=== PATIENT | female | born 1970 ===

== ENCOUNTER 2024-01-17 11:54 | Outpatient (REF) | payer SELFPAY ==
[2024-01-17 13:35] LABS: Alanine Aminotransferase 20 U/L (0-31); Albumin Level 4.3 g/dL (3.5-5.0); Alkaline Phosphatase 94 U/L (39-117); Anion Gap 10 (12-20); Aspartate Amino Transferase 16 U/L (5-31); Bilirubin Total 0.4 mg/dL (0.0-1.0); Blood Urea Nitrogen 17 mg/dL (9-16); Calcium 9.7 mg/dL (8.4-10.2); Carbon Dioxide 28 mmol/L (22-29); Chloride 107 mmol/L (96-108); Cholesterol 197 mg/dL (<200); Estimated Glomerular Filt Rate > 60; Glucose Random 96 mg/dL (60-115); HDL Cholesterol 54 mg/dL (>40); LDL Cholesterol Calculated 119 mg/dL (<100); Sodium 141 mmol/L (135-145); Total Protein 7.2 g/dL (6.5-8.0); Triglycerides 124 mg/dL (<150)
[2024-01-17 15:22] LABS: CT PCR NOT DETECTED (Not Detect.); NG PCR NOT DETECTED (Not Detect.)
[2024-01-18 19:43] LABS: RPR Rapid Plasma Reagin NON-REACTIVE (NON-REACTIVE)
[2024-01-20 16:13] LABS: HIV RNA PCR Qn Copies Not Detected Copies/mL; HIV RNA PCR Qn Log Copies Not Detected Log cps/mL
== END 2024-01-17 11:55 | disposition home or self-care (01) ==
LOC: HO.HHCL 11:54
PROVIDERS: Visit Provider Nurse Practitioner Family
DX: Z00.00 Encounter for general adult medical examination without abnormal findings (principal); I10 Essential (primary) hypertension
CPT/HCPCS: 36415; 80053; 80061; 86592; 87491; 87536; 87591; 87900

== ENCOUNTER 2024-06-20 14:05 | Outpatient (REF) | payer BC, SELFPAY ==
--- OUTSIDE RECORDS SUMMARY | 2024-06-20 15:04 | XMS_ITS | Encounter Summary ---
Author Organization [employer] Address [address] [facility] 7t [place] [address] Care Team Providers Care Financial Assistance Specialist Name Role Phone Valentine Lagunas ESSIE Primary Care Provider [phone] Reason for Visit * Reason Onset Date Comments Chart Prep 06/07/2024 Encounter Details Date Type Department Care Team ([facility] st Contact Info) Description 06/07/2024 Telephone [facility] [address] [place], [place] [phone] Rosi Cannon MA Chart Prep Social History Tobacco Use Types Packs/Day Years Used Date Smoking Tobacco: Never Smokeless Tobacco: Never Alcohol Use Standard Drinks/Week Comments Yes 0 (1 standard drink = 0.6 oz pur e alcohol) socially Depression Answer Date Recorded Patient Health Questionnaire-9 Score 15 01/17/2024 Patient Health Questionnaire-9 Score 15 01/17/2024 Last PHQ-9: Questionnaire Data Not on file 0 01/17/2024 Housing Stability Answer Date Recorded What is your housing situation today? I have willem nuñez 12/31/[address] you li ve. Do you have problems with any of the following? None of the above 12/31/2023 Food Insecurity Answer Date Recorded Within the past 12 months, y ou worried that your food would run out before you got money to buy more: Never True 12/31/2023 Within the past 12 months,th e food you bought just didn't last and you didn't have enough money to get more: Never True 01/2024 Transportation Answer Date Recorded In the past 12 months, has l ack of transportation kept you from medical appts, meetings, work or from getting things needed for daily living? No 12/31/2023 Utilities Answer Date Recorded In the past 12 months, has t he [employer], gas, oil or water company threatened to shut off services in your home? No 12/31/2023 Depression Answer Date Recorded Patient Health Questionnaire-2 Score 2 01/17/2024 Internet Access Answer Date Recorded Internet Access Q1 Yes 01/21/2024 Internet Access Q2 Not on file 01/21/2024 Comments Unknown Sex and Gender Information Value Date Recorded Sex Assigned at Female 03/23/2022 10:14 AM EDT Legal Sex Female 10:14 AM EDT Gender Identity Female 03/23/2022 10:14 AM EDT Sexual Orientation Choose not to disclose 2021 10:14 AM EDT documented as of this encounter Miscellaneous Notes * Telephone Encounter - Rosi Cannon MA - 06/07/2024 4:01 PM EST Chart Prep Labs: not done Images: not applicable Vaccines due: Covid Due, Hep B Due, Flu Due, and Shingles in pharmacy Due Referrals: Orthopedics pending appt Screenings: HIV screening Hep C, Cervical cancer Overdue care gaps: None documented in this encounter Plan of Treatment Upcoming Encounters Date Type Department Care Team (Late st Contact Info) Description 07/18/2024 1:00 PM EST Procedure Visit [facility] MED[facility]INE [address] [place] [address] Valentine Lagunas NP [address] [place] [address] 08/08/2024 1:30 PM EDT Office Visit [facility] [address] [place] [address] Valentine Lagunas NP [address] [place] [address] documented as of this encounter Visit Diagnoses Not on filedocumented in this encounter Additional Health Concerns Assessment Noted Time PHQ-9 Depression Total Score: 15 024 12:05 PM EDT documented as of this encounter Care Teams Financial Assistance Specialist Relationship Specialty Start Date End Date Valentine Lagunas NP [address] [place] [address] PCP - General Family Medicine 11/18/23 documented as of this encounter
--- OUTSIDE RECORDS SUMMARY | 2024-06-20 15:04 | XMS_ITS | Encounter Summary ---
Author Organization [employer] Address [address] [facility] [address] [place] [address] Care Team Providers Care First Officer And Flight Instructor Name Role Phone Deepika RiderP Primary Care Provider [phone] Beverly Michelle NP Primary Care Provider [phone] Deepika Rider HYDRATION PLANT OPERATOR Primary Care Provider [phone] Valentine Lagunas NP Primary Care Provider [phone] Encounter Details Date Type Department Care Team (Late st Contact Info) Description 11/05/2022 Abstract [facility] MEDICINE [address] [place] [address] [phone] Deepika Rider FNP [address] [place], [place] [phone] Social History Tobacco Use Types Packs/Day Years Used Date Smoking Tobacco: Never Assessed Comments Unknown Sex and Gender Information Value Date Recorded Sex Assigned at Female 03/23/2022 10:14 AM EDT Legal Sex Female 10:14 AM EDT Gender Identity Female 03/23/2022 10:14 AM EDT Sexual Orientation Choose not to disclose 2021 10:14 AM EDT documented as of this encounter Plan of Treatment Upcoming Encounters Date Type Department Care Team (Late st Contact Info) Description 07/18/2024 1:00 PM EST Procedure Visit [facility] [address] [place] [address] [phone] Valentine Lagunas NP [address] [place] [address] 08/08/2024 1:30 PM EDT Office Visit [facility] MED[facility]INE [address] [place] [address] Valentine Lagunas NP [address] [place] [address] documented as of this encounter Procedures Procedure Name Priority Date/Time Associated Diagnosis Comments COLONOSCOPY Routine 06/19/2020 10:19 AM EST PAP/HPV Routine 06/16/2018 documented in this encounter Results * Colonoscopy (06/19/2020 10:19 AM EST) Colonoscopy Normal Normal Narrative Petrona Mccarthy - 06/19/2020 10:19 AM EST Recommended 5 year follow up Historical Provider [facility] Edited Result - Final * Pap Smear (06/16/2018) Pap Negative for intraephithelial lesion or malignancy Negative for intraephithelial lesion or malignancy, Other HPV Undetected 06/16/2018 us Historical Provider [facility] Final Result documented in this encounter Visit Diagnoses Not on filedocumented in this encounter Care Teams First Officer And Flight Instructor Relationship Specialty Start Date End Date Deepika Rider FNP [address] [place] [address] PCP - General Family Medicine 04/20/22 11/03/23 Beverly Michelle NP [address] [place] [address] PCP - General Family Medicine 11/04/23 11/08/23 Deepika Rider FNP [address] [place] [address] PCP - General Family Medicine 11/09/23 11/17/23 Valentine Lagunas NP [address] [place] [address] PCP - General Family Medicine 11/18/23 documented as of this encounter
--- OUTSIDE RECORDS SUMMARY | 2024-06-20 15:04 | XMS_ITS | Encounter Summary ---
Author Organization [employer] Address [address] [facility] 7t [place] [address] Care Team Providers Care Ict Account Manager Name Role Phone Valentine Lagunas NP Primary Care Provider [phone] Encounter Details Date Type Department Care Team ([facility] st Contact Info) Description 06/20/2024 1:00 PM EST Office Visit [facility] MEDICINE [address] [place], [place] [phone] Valentine Lagunas NP [address] [place], [place] [phone] Hypertension, unspecified type (Primary Dx); Health care maintenance; Depression, unspecified depression type; Colon cancer screening; Screening for colon cancer; Eczema, unspecified type; 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); Dietary counseling; Exercise counseling; Snoring Social History Tobacco Use Types Packs/Day Years [...] the past 12 months, has t he electric, gas, oil or water company threatened to [...] AM EDT documented as of this encounter Last Filed Vital Signs Vital Sign Reading Time Taken Comments Blood Pressure 155/85 06/20/2024 12:55 PM EST Pulse 60 06/20/2024 12:55 PM EST Temperature 36.1 ??C (96.9 ??F) 06/20/2024 12:[address] Respiratory Rate 20 06/20/2024 12:55 PM EST Oxygen Saturation 98% 06/20/2024 12:55 PM EST Inhaled Oxygen Concentration - - Weight 74.1 kg (163 lb 6.4 oz) 06/20/2024 12:55 PM EST Height 157.5 cm (5' 2 ) 06/20/2024 12:55 PM EST Body Mass Index 29.89 06/20/2024 12:55 PM EST documented in this encounter Miscellaneous Notes * Assessment & Plan Note - Valentine Lagunas NP - 06/20/2024 1:34 PM ESTAssociated Problem(s): Snoring No associated fatigue or witnessed apnea spells, pt declines sleep study at this time * Assessment & Plan Note - Valentine Lagunas NP - 06/20/2024 1:33 PM ESTAssociated Problem(s): 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) Reduce buproprion to 100 mg SR due to insomnia with 150 mg XR Return to clinic in 4 weeks sooner prn * Assessment & Plan Note - Valentine Lagunas NP - 06/20/2024 1:33 PM ESTAssociated Problem(s): Exercise counseling Encouraged daily movement, working up to 30 minutes daily * Assessment & Plan Note - Valentine Lagunas NP - 06/20/2024 1:32 PM ESTAssociated Problem(s): Dietary counseling Encouraged minimizing processed foods and increasing whole foods particularly vegetables * Assessment & Plan Note - Valentine Lagunas NP - 06/20/2024 1:32 PM ESTAssociated Problem(s): Eczema 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 Trial steroid cream * Assessment & Plan Note - Valentine Lagunas NP - 06/20/2024 1:32 PM ESTAssociated Problem(s): HTN (hypertension) Above goal today and at home Pt is prescribed both amlodipine and lisinopril but was only taking one pill at home Pt will start both medications Pt has home bp cuff and will record readings at home Return to clinic in 4 weeks * Assessment & Plan Note - Valentine Lagunas NP - 06/20/2024 1:31 PM ESTAssociated Problem(s): Health care maintenance Pap scheduled Colonoscopy and cardiovascular labs ordered Utd on mammogram Anticipatory guidance reviewed documented in this encounter Plan of Treatment Upcoming Encounters Date Type Department Care Team (Late st Contact Info) Description 07/18/2024 1:00 PM EST Procedure Visit [facility] MEDICINE [address] [place] [address] Valentine Lagunas NP [address] [place] [address] 08/08/2024 1:30 PM EDT Office Visit [facility] MEDICINE [address] [place] [address] Valentine Lagunas NP [address] [place] [address] Scheduled Orders Name Type Priority Associated Diagnoses Orde r Schedule Cologuard?? colon cancer screening Lab Routine Colon cancer screening Screening for colon cancer Ordered: 06/20/2024 Comprehensive Metabolic Panel Lab Routine Health care maintenance Expected: 06/20/2024 (Approximate), Expires: 06/20/2025 Hemoglobin A1c Lab Routine Health care maintenance Expected: 06/20/2024 (Approximate), Expires: 06/20/2025 Lipid Panel, Standard Lab Routine Health care maintenance Expected: 06/20/2024 (Approximate), Expires: 06/20/2025 documented as of this encounter Visit Diagnoses Diagnosis Hypertension, unspecified type- Primary Health care maintenance Depression, unspecified depression type Colon cancer screening Special screening for malignant neoplasms, colon Screening for colon cancer Special screening for malignant neoplasms, colon Eczema, unspecified type 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
--- OUTSIDE RECORDS SUMMARY | 2024-06-20 15:04 | XMS_ITS | Encounter Summary ---
Author Organization [employer] Address [address] [facility] 7t [place] [address] Care Team Providers Care Records Associate Name Role Phone Valentine Lagunas NET MENDER Primary Care Provider [phone] Reason for Visit * Reason Onset Date Comments No Show 05/22/2024 Encounter Details Date Type Department Care Team ([facility] st Contact Info) Description 05/22/2024 Telephone [facility] MEDICINE [address] [place] [address] Valentine Lagunas NP [address] [place] [address] No Show Social History Tobacco Use Types Packs/Day Years [...] encounter Miscellaneous Notes * Telephone Encounter - Catherine Tom - 05/22/2024 2:03 PM EST Patient no show to pap smear appointment on 05/22/24. documented in this encounter Plan of Treatment Upcoming Encounters Date Type Department Care Team (Late st Contact Info) Description 07/18/2024 1:00 PM EST Procedure Visit [facility] MED[facility]INE [address] [place] [phone] Valentine Lagunas NP [address] [place] [address] 08/08/2024 1:30 PM EDT Office Visit [facility] MED[facility] [address] [place] [address] Valentine Lagunas NP [address] [place] [address] documented as of this encounter Visit Diagnoses Not on filedocumented in this encounter Additional Health Concerns Assessment Noted Time PHQ-9 Depression Total Score: 15 024 12:05 PM EDT documented as of this encounter Care Teams Records Associate Relationship Specialty Start Date End Date Valentine Lagunas NP [address] [place] [address] PCP - General Family Medicine 11/18/23 documented as of this encounter
--- OUTSIDE RECORDS SUMMARY | 2024-06-20 15:04 | XMS_ITS | Encounter Summary ---
Author Organization [facility] Address [address] [place] [address] Phone Care Team Providers Care Supervisor Smoke Control Name Role Phone Tom Pak Primary Care Provider Unavaila ble Encounter Details Date Type Department Care Team (Late st Contact Info) Description 10/23/2021 Telephone [facility] [address] [place] [address] Nino El MD Social History Tobacco Use Types Packs/Day Years Used Date Smoking Tobacco: Never Smokeless Tobacco: Never Alcohol Use Standard Drinks/Week Comments Yes 0 (1 standard drink = 0.6 oz pure alcohol) Alcoholic Drinks/day: Occasional social drink Comments Unknown Sex and Gender Information Value Date Recorded Sex Assigned at Not on file Legal Sex Female 5:03 PM EST Gender Identity Not on file Sexual Orientation Not on file documented as of this encounter Miscellaneous Notes * Telephone Encounter - Madeline Sherman MA - 10/23/2021 3:20 PM EDT Please see message * Telephone Encounter - Bernarda Saavedra - 10/23/2021 3:16 PM EDT Pts pcp called, they will be switching her from amlodipine 5 mg to lisinopril - HCTZ 10 -12.5 mg 1 tab daily due to soom swelling. documented in this encounter Plan of Treatment Not on file documented as of this encounter Visit Diagnoses Not on filedocumented in this encounter Care Teams Supervisor Smoke Control Relationship Specialty Start Date End Date Tom Pak PCP - General Internal Medicine 05/13/22 documented as of this encounter
--- OUTSIDE RECORDS SUMMARY | 2024-06-20 15:04 | XMS_ITS | Encounter Summary ---
Author Organization [employer] Address [address] [facility] 7t [place] [address] Care Team Providers Care Nursing Care Partner Name Role Phone Valentine Lagunas NP Primary Care Provider [phone] Reason for Visit * Reason Comments Pre-visit Planning SDOH screening negat art and tobacco screening negative Encounter Details Date Type Department Care Team (Late st Contact Info) Description 06/08/2024 Patient Outreach [facility] MEDICINE [address] [place], [place] [phone] Valentine Lagunas NP [address] [place] [address] Pre-visit Planning (SDOH screening negative and tobacco screening negative) Social History Tobacco Use Types Packs/Day Years [...] AM EDT documented as of this encounter Progress Notes * Ana Miranda - 06/08/2024 9:32 AM EST CC Ana placed successful outbound call to patient for pre-visit planning. Patient name and confirmed. Patient confirms appt date and time, and has transportation. Biggest concern for appointment at this time is none Patient advised to bring to appointment a photo id and insurance card. Appropriate screenings completed in anticipation of appointment. documented in this encounter Plan of Treatment Upcoming Encounters Date Type Department Care Team (Late st Contact Info) Description 07/18/2024 1:00 PM EST Procedure Visit [facility] MEDICINE [address] [place] [address] Valentine Lagunas NP [address] [place] [address] 08/08/2024 1:30 PM EDT Office Visit [facility] [address] [place] [address] Valentine Lagunas NP [address] [place] [address] documented as of this encounter Visit Diagnoses Not on filedocumented in this encounter Additional Health Concerns Assessment Noted Time PHQ-9 Depression Total Score: 15 024 12:05 PM EDT documented as of this encounter Care Teams Nursing Care Partner Relationship Specialty Start Date End Date Valentine Lagunas NP [address] [place] [address] PCP - General Family Medicine 11/18/23 documented as of this encounter
--- OUTSIDE RECORDS SUMMARY | 2024-06-20 15:05 | XMS_ITS | Clinical Summary ---
Author Organization [facility] Address [address] [place] [address] Phone Care Team Providers Care Plating Engineer Name Role Phone Me Pashahopecirilo Primary Care Provider Unavaila ble Allergies Active Allergy Reactions Criticality Noted Date Comments Acetaminophen Other (see comments) ,Nausea And Vomiting 06/19/2019 Hydrocortisone Other (see comments) 10/23/2020 Oxycodone Other (see comments) 10/23/2020 Oxycodone-Acetaminophen 02/03/2023 Medications amLODIPine (NORVASC) 10 MG tablet Take 1 tablet (10 mg total) by mouth 1 (one) time each day 30 tablet 11 04/26/2023 Active Active Problems Problem Noted Date Diagnosed Date Gout drug side effect <Sequela> 05/13/2022 Left flank pain 05/13/2022 Hypertension 04/23/2021 Chronic kidney disease, stage 2 (mild) Hypertensive renal disease 10/23/2020 Hypertensive disorder 04/14/2010 Resolved Problems Problem Noted Date Diagnosed Date Resolved Date Paresthesia of hand 11/29/2014 04/22/20 21 Overview (10/23/2020): Saw Dr. Alonso for this, referred for EMG Constipation 04/10/2014 04/22/2021 Migraine 12/24/2010 04/22/2021 Infection caused by Helicobacter pylori 10/13/2010 04/22/2021 Overview (10/23/2020): +IGM and +IGG Shortness of breath 10/06/2010 04/22/20 21 Panic attack 07/08/2010 04/22/2021 Immunizations Name Administration Dates Next Due Hepatitis B 10/03/2021 Influenza TIV (IM) 03/16/2013 MMR 10/03/2021 Moderna SARS-COV-2 10/01/2021,10/09/2020, 021 Tdap 11/25/2018,10/13/2011 Family History Medical History Relation Comments Hypertension Mother Kidney disease Sibling 1 Cancer Sibling 2 Relation Status Comments Father Mother Alive Sibling 1 Sibling 2 Social History Tobacco Use Types Packs/Day Years Used Date Smoking Tobacco: Never Smokeless Tobacco: Never Tobacco Cessation:Counseling Given: Not Answered Alcohol Use Standard Drinks/Week Comments Yes 0 (1 standard drink = 0.6 oz pure alcohol) Alcoholic Drinks/day: Occasional social drink Comments Unknown Sex and Gender Information Value Date Recorded Sex Assigned at Not on file Legal Sex Female 5:03 PM EST Gender Identity Not on file Sexual Orientation Not on file Last Filed Vital Signs Vital Sign Reading Time Taken Comments Blood Pressure 154/82 04/26/2023 1:46 PM EST Pulse 66 04/26/2023 1:43 PM EST Temperature - - Respiratory Rate - - Oxygen Saturation 99% 04/26/2023 1:43 PM EST Inhaled Oxygen Concentration - - Weight 74.4 kg (164 lb) 04/26/2023 1:43 PM EST Height 157.5 cm (5' 2 ) 03/13/2020 12:01 PM EDT Body Mass Index 30 03/13/2020 12:01 PM EDT Plan of Treatment Health Maintenance Due Date Last Done Comments Breast Cancer Screening 1972 Pneumococcal Vaccine: Pediat rics (0 to 5 Years) and At-Risk Patients (6 to 64 Years) (1 of 2 - PCV) 1978 Hepatitis B Vaccine (1 of 3 - 19+ 3-dose series) 06/1410/03/2021 Colorectal Cancer Screening: Annual FOBT 2021 Colorectal Cancer Screening: Colonoscopy 2021 Colorectal Cancer Screening: Sigmoidoscopy 2021 Influenza Vaccine (#1) 2024 03/16/2013 Insurance MEDICAID [place] [facility] [place]ID [place] [facility] Care Teams Plating Engineer Relationship Specialty Start Date End Date Tom Pak PCP - General Internal Medicine 05/13/22
--- OUTSIDE RECORDS SUMMARY | 2024-06-20 15:05 | XMS_ITS | Encounter Summary ---
Author Organization [facility] Address [address] [place] [address] Phone Care Team Providers Care Roll Forming Machine Set Up Mechanic Name Role Phone Tom Pak Primary Care Provider Unavaila ble Encounter Details Date Type Department Care Team (Late st Contact Info) Description 10/22/2021 Telephone [facility] [address] [place] [address] Nino El MD Social History [...] encounter Miscellaneous Notes * Telephone Encounter - Bernarda Saavedra - 10/22/2021 3:07 PM EDT Message was cortexed to Dr. El Pt Rhiannondane Haydee 1970, pt called, both her feet are severaly swollen to the point were she cannot walk. She would like to speak with you for guidance. Please call her back at [phone] Thank you documented in this encounter Plan of Treatment Not on file documented as of this encounter Visit Diagnoses Not on filedocumented in this encounter Care Teams Roll Forming Machine Set Up Mechanic Relationship Specialty Start Date End Date Tom Pak PCP - General Internal Medicine 05/13/22 documented as of this encounter
--- OUTSIDE RECORDS SUMMARY | 2024-06-20 15:05 | XMS_ITS | Clinical Summary ---
Author Organization [employer] Address [address] [facility] [address] [place] [address] Care Team Providers Care Outreach Nurse Name Role Phone Valentine Lagunas ESSIE Primary Care Provider [phone] Allergies Active Allergy Reactions Criticality Noted Date Comments Acetaminophen Nausea And Vomiting,Other 018 Oxycodone Other 02/03/2018 Oxycodone-Acetaminophen 02/03/2023 Medications * This document contains information received from the source organization and may not represent a complete record from that organization. Diclofenac Sodium 1 % gelIndications: Acute carpal tunnel syndrome of right wrist Apply 2 g topically if needed in the morning, at noon, in the evening, and at bedtime (pain). 150 g 3 04/18/20 24 Active amLODIPine (Norvasc) 10 MG tabletIndicatio ns:Hypertension , unspecified type Take 1 tablet (10 mg) by mouth Once per day. 30 tablet 11 04/18/20 24 025 Active lisinopril (Prinivil) 10 MG tabletIndicatio ns:Hypertension , unspecified type Take 1 tablet (10 mg) by mouth Once per day. 30 tablet 11 04/18/20 24 025 Active buPROPion SR (Wellbutrin SR) 100 MG 12 hr tabletIndicatio ns:Depression, unspecified depression type Take 1 tablet (100 mg) by mouth Once per day. Do not crush, chew, or split. 30 tablet 2 06/20/19 25 025 Active triamcinolone (Kenalog) 0.1 % cream Apply topically if needed in the morning and at bedtime (pain and swelling). 30 g 2 06/20/19 25 Active gabapentin (Neurontin) 100 MG capsule Take 3 capsules (300 mg) by mouth every 8 (eight) hours. 270 capsule 11 11/04/19 24 025 Discontinued(Si de effects) buPROPion XL (Wellbutrin XL) 150 MG 24 hr tabletIndicatio ns:DEBI (generalized anxiety disorder) Take 1 tablet (150 mg) by mouth Once per day. Do not crush, chew, or split. 90 tablet 04/18/20 24 025 Discontinued Active Problems Problem Noted Date Diagnosed Date Depression 06/20/2024 Colon cancer screening 06/20/2024 Screening for colon cancer 06/20/2024 Eczema 06/20/2024 Assessment & Plan (06/20/2024 1:32 PM EST): Contact dermatitis (pt works as commercial or institutional cleaner) vs eczema Trial steroid cream Snoring 06/20/2024 Assessment & Plan (06/20/2024 1:34 PM EST): No associated fatigue or witnessed apnea spells, pt declines sleep study at this time Health care maintenance 06/19/2024 Assessment & Plan (06/20/2024 1:31 PM EST): Pap scheduled Colonoscopy and cardiovascular labs ordered Utd on mammogram Anticipatory guidance reviewed Cervical cancer screening 05/21/2024 Acute carpal tunnel syndrome of right wrist 03/25 Assessment & Plan (04/18/2024 7:51 PM EST): Resume nocturnal bracing Referral to ortho Diclofenac cream prescribed, Notes for work given Dietary counseling 03/11/2024 Assessment & Plan (06/20/2024 1:32 PM EST): Encouraged minimizing processed foods and increasing whole foods particularly vegetables Assessment & Plan (03/11/2024 4:33 PM EDT): Encouraged minimizing processed foods and increasing whole foods particularly vegetables Exercise counseling 03/11/2024 Assessment & Plan (06/20/2024 1:33 PM EST): Encouraged daily movement, working up to 30 minutes daily Assessment & Plan (03/11/2024 4:32 PM EDT): Encouraged daily movement Fever 02/18/2024 Assessment & Plan (03/11/2024 4:33 PM EDT): History suggestive of period of fever with associated headache, not ongoing, smyptoms have improved and pt no longer endorses headache or associated symptoms Pain of right upper extremity 02/18/2024 Assessment & Plan (03/11/2024 4:32 PM EDT): Due to hx of surgery will refer to ortho DEBI (generalized anxiety disorder) 01/25/2024 Assessment & Plan (04/18/2024 7:52 PM EST): Increase buproprion Monitor for increased anxiety, in which case call clinic and resume lower dosage Declines therapy today HTN (hypertension) 02/03/2023 Assessment & Plan (06/20/2024 1:32 PM EST): Above goal today and at home Pt is prescribed both amlodipine and lisinopril but was only taking one pill at home Pt will start both medications Pt has home bp cuff and will record readings at home Return to clinic in 4 weeks Assessment & Plan (04/18/2024 7:51 PM EST): Continue current regimen Assessment & Plan (03/11/2024 4:31 PM EDT): Slightly above goal today, monitor, continue current regimen Chronic kidney disease, stage 2 (mild) Gastroesophageal reflux disease 10/28/2018 Posttraumatic stress disorder 07/01/2018 Severe recurrent major depre ssion without psychotic features 07/01/2018 Assessment & Plan (06/20/2024 1:33 PM EST): Reduce buproprion to 100 mg SR due to insomnia with 150 mg XR Return to clinic in 4 weeks sooner prn Herpes simplex 11/03/2017 Migraine 12/24/2010 History of Helicobacter pylori infection 011 Overview (11/04/2023): +IGM and +IGG Panic attacks 07/08/2010 Encounters Date Type Department Care Team Description 06/20/2024 1:00 PM EST Office Visit [address] [address] Valentine Lagunas NP Hypertension, unspecified type (Primary Dx); Health care maintenance; Depression, unspecified depression type; Colon cancer screening; Screening for colon cancer; Eczema, unspecified type; 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); Dietary counseling; Exercise counseling; Snoring 06/08/2024 Patient Outreach [address] [address] Valentine Lagunas NP Pre-visit Planning (SDOH screening negative and tobacco screening negative) 06/07/[address] [address] Rosi Cannon MA Chart Prep 05/22/[address] [address] Valentine Lagunas NP No Show 05/19/[address] [address] Rosi Cannon MA Chart Prep 04/18/2024 11:00 AM EST Office Visit [address] [address] Valentine Lagunas NP Hypertension, unspecified type (Primary Dx); DEBI (generalized anxiety disorder); Posttraumatic stress disorder; Acute carpal tunnel syndrome of right wrist 04/18/2024 Travel 04/17/[address] [address] Rosi Cannon MA Chart Prep 04/11/2024 Patient Outreach [facility] [address] [place], [place] [id number] Valentine Lagunas NP Pre-visit Planning (SDOH unable to reach LVM) from Last 3 Months Immunizations Name Administration Dates Next Due Hep B, adult 10/03/2021 Influenza, IIV3, injectable 03/16/2013 MMR 10/03/2021 Tdap 11/25/2018,10/13/2011 Family History Medical History Relation Name Comments Heart attack Maternal Grandfather Diabetes type II Mother Hypertension Mother Heart attack Mother's Brother Heart attack Paternal Grandfather Relation Name Status Comments Maternal Grandfather Mother Mother's Brother Paternal Grandfather Social History Tobacco Use Types Packs/Day Years [...] not to disclose 2021 10:14 AM EDT Last Filed Vital Signs Vital Sign Reading [...] Mass Index 29.89 06/20/2024 12:55 PM EST Plan of Treatment Upcoming Encounters Date Type Department Care Team (Late st Contact Info) Description 07/18/2024 1:00 PM EST Procedure Visit [facility] [address] [place] [address] Valentine Lagunas, ESSIE [address] [place] [address] 08/08/2024 1:30 PM EDT Office Visit [facility] [address] [place] [address] Valentine Lagunas, ESSIE [address] [place] [address] Health Maintenance Due Date Last Done Comments CT Colonography 1972 FIT DNA/Cologuard 1972 FIT 1972 FOBT 1972 HIV Screening 1972 Sigmoidoscopy 1972 Family Planning (PISQ) 1987 Hepatitis C Screening 1990 Hepatitis B Vaccines (2 of 3 - 19+ 3-dose series) 10/31/2021 10/03/2021 Zoster Vaccines (1 of 2) 2022 Cervical Cancer Screening 06/16/2023 HPV/Cotest 06/16/2023 06/16/2018, 06/16/2018 Pap Smear 06/16/2023 06/16/2018 COVID-19 Vaccine ( season) 2024 10/01/2021, 10/09/2020, 09/11/2020 Influenza Vaccine (#1) 2024 03/16/2013 Depression Monitoring (PHQ-9) 07/19/2024 01/17/2024, 01/17/2024 Depression Screening 01/16/2025 01/17/2024, 01/17/20 Alcohol/Substance Use Screening 04/18/2025 04/18/2024 SDOH Screening 06/08/2025 06/08/2024 Colonoscopy 06/19/2025 06/19/2020 Colorectal Cancer Screening 06/19/2025 Tobacco Screening 06/20/2025 06/20/2024 Mammogram 11/23/2025 11/24/2023, 03/06/2021, 07/05/2020, Additional history exists DTaP/Tdap/Td Vaccines (3 - Td or Tdap) 11/25/2028 11/25/2018, 10/13/2011 Lipid Panel 01/16/2029 01/17/2024, 10/23/2021 RSV Patients and Patients Aged 60 years or older (1 - 1-dose 75+ series) 2047 HIB Vaccines Aged Out No longer eligi ble based on patient's age to complete this topic HPV Vaccines Aged Out No longer eligi ble based on patient's age to complete this topic Hepatitis A Vaccines Aged Out No long er eligible based on patient's age to complete this topic IPV Vaccines Aged Out No longer eligi ble based on patient's age to complete this topic Meningococcal Vaccine Aged Out No jeremias key eligible based on patient's age to complete this topic Pneumococcal Vaccine: Pediatrics (0 to 5 Years) and At-Risk Patients (6 to 64 Years) Aged Out No longer eligible based on patient's age to complete this topic RSV under 20 months Aged Out No longe r eligible based on patient's age to complete this topic Rotavirus Vaccines Aged Out No longer eligible based on patient's age to complete this topic Procedures Procedure Name Priority Date/Time Associated Diagnosis Comments LIPID PANEL, STANDARD Routine 01/17/2024 12:03 PM EDT Hypertension, unspecified type BI MAMMOGRAM SCREENING TOMOSYNTHESIS BILATERAL Routine 11/24/2023 9:51 AM EDT HM COLONOSCOPY Routine 06/19/2020 10:19 AM EST ZZZ HISTORICAL HPV MRNA E6/E7 Routine 06/16/2018 9:10 AM EST HM PAP/HPV Routine 06/16/2018 from Last 3 Months or Most Recently Relevant to Health Maintenance Results * (ABNORMAL) Lipid Panel, Standard (01/17/2024 12:03 PM EDT) Triglycerides 124 <150 mg/dL [facility] Comment:Desirable Triglyceri de: less than 150 mg/dLBorderline High Triglyceride 150-199 mg/dLHigh Triglyceride: 200-499 mg/dLVery High Triglyceride: greater than or equal to 5OO mg/dL Cholesterol 197 <200 mg/dL [facility] Comment:Desirable Cholestero l: less than 200 mg/dLBorderline High Cholesterol: 200-239 mg/dLHigh Cholesterol: greater than 239 mg/dL LDL Cholesterol Calculated 119(H) <100 mg/dL [facility] Comment:Desirable LDL: less than 100 mg/dLNear Optimal/Above Optimal LDL: 110- 129 mg/dLBorderline High LDL: 130-159 mg/dLHigh LDL: 160-189 mg/dLVery High LDL: greater than or equal to 190 mg/dL HDL Cholesterol 54 >40 mg/dL [facility] Comment:Desirable HDL: great er than 40 mg/dL Note: This HDL assay may give artificially low results in patients with liver disease. Blood Venous blood specimen / Unknown 01/17/2024 12:03 PM EDT 01/17/2024 1:07 PM EDT us [employer]ika [employer] LAB BLOOD ORDERABLES Final Resu lt [facility] [address] [place] [phone] * BI Mammogram Screening Tomosynthesis Bilateral (11/24/2023 9:51 AM EDT) Anatomical Region Laterality Modality Breast Bilateral Mammography 11/24/2023 9:51 AM EDT Narrative 12/22/2023 7:15 AM EDT ? [place] [facility] ? [address] ?[place] [address] ? Mammography Report ? Signed ? Patient: Haydee,Paulina ?MR#: [id number] ?? 202 ? : 1970 ?Acct:[id number] ? Age/Sex: 53 / F ?ADM Date: 11/24/23 ? Loc: HO.MAMMO ? Attending Dr: Casey Blunt MD ? Ordering Physician: Casey Blunt MD ?Results: 1Negative ? Date of Service: 11/24/23 ?Follow Up: 1 Year From Orig ?? inal Mammogram ? Procedure(s): MM tomosynthesis screening BI ?? Accession Number(s): [id number] ? cc: Kate Mccracken DO; Casey Blunt MD ? EXAMINATION: ?? MM SCREENING DIGITAL BREAST TOMOSYNTHESIS, BILATERAL ? CLINICAL INFORMATION: ? Screening. Asymptomatic. ? COMPARISON: ?? Mammography: This study is compared with prior exams dating back to ?? 2018. ? TECHNIQUE: ?? Digital breast tomosynthesis is performed in both the craniocaudal and ?? mediolateral oblique views along with computer-aided detection (CAD). ?? Synthesized 2D images are generated from the tomosynthesis. ? FINDINGS: ?? There are scattered areas of fibroglandular density (ACR BI-RADS breast ?? composition Category b). ? There are no significant masses, abnormal calcifications, or other ?? abnormalities. ? MM/MM tomosynthesis screening BI ?? IMPRESSION: ?? No mammographic evidence of malignancy. ? ASSESSMENT: ? BI-RADS BI-RADS 1 - Negative ? RECOMMENDATION: ?? Routine annual mammography screening. ? 1 year F/U ? This examination should not preclude the clinical evaluation of a ?? suspicious palpable abnormality. ? This patient's information was entered into a reminder system with a ?? target due date for their next mammogram. ? Dictated By: ?Liss Emmanuel MD ? Signed By: ?<Electronically signed by Liss Emmanuel MD in OV> ? 12/22/23710 ? DD/ 0951 ? TD/TT: ? Mainspring Winder: ? Procedure Note Dallin, Flynn - 12/22/2023 [place] [facility] [address] [place] [address] Mammography Report Signed Patient: Moses Hubbard#: [id number] : 1970Acct:[id number] Age/Sex: 53 / FADM Date: 11/24/23 Loc: HO.MAMMO Attending Dr: Casey Blunt MD Ordering Physician: Casey Blunt MDResults: 1Negative Date of Service: 11/24/23Follow Up: 1 Year From Orig inal Mammogram Procedure(s): MM tomosynthesis screening BI Accession Number(s): [id number] cc: Kate Mccracken DO; Casey Blunt MD EXAMINATION: MM SCREENING DIGITAL BREAST TOMOSYNTHESIS, BILATERAL CLINICAL INFORMATION: Screening. Asymptomatic. COMPARISON: Mammography: This study is compared with prior exams dating back to 2018. TECHNIQUE: Digital breast tomosynthesis is performed in both the craniocaudal and mediolateral oblique views along with computer-aided detection (CAD). Synthesized 2D images are generated from the tomosynthesis. FINDINGS: There are scattered areas of fibroglandular density (ACR BI-RADS breast composition Category b). There are no significant masses, abnormal calcifications, or other abnormalities. MM/MM tomosynthesis screening BI IMPRESSION: No mammographic evidence of malignancy. ASSESSMENT: BI-RADS BI-RADS 1 - Negative RECOMMENDATION: Routine annual mammography screening. 1 year F/U This examination should not preclude the clinical evaluation of a suspicious palpable abnormality. This patient's information was entered into a reminder system with a target due date for their next mammogram. Dictated By: Liss Emmanuel MD Signed By: <Electronically signed by Liss Emmanuel MD in OV> 12/22/23710 DD/ 0 TD/TT: Mainspring Winder: [facility] External Provider IMG BI PROCEDURES Edited Result - Final * Hm Colonoscopy (06/19/2020 10:19 AM EST) Colonoscopy Normal Normal Narrative Petrona Mccarthy - 06/19/2020 10:19 AM EST Recommended 5 year follow up Historical Provider HEALTH MAINTENANCE Edited Result - Final * HPV mRNA E6/E7 (06/16/2018 9:10 AM EST) HPV mRNA E6/E7 Not Detected NOT DETECTED [facility] Comment: This test was performed using the APTIMA(R) HPV Assay ([employer] This assay detects E6/E7 viral messenger RNA (mRNA) from 14 high-risk HPV types (16,18,31,33,35,39,45,51, 52,56,58,59,66,68). For additional information please refer to: http://education.[employer].NanoH2O/faq/EJQ289k4 (This link is being provided for informational/ educational purposes only.) The analytical performance characteristics of this assay have been determined by [employer] [place], [place]. The modifications have not been cleared or approved by the FDA. This assay has been validated pursuant to the CLIA regulations and is used for clinical purposes. Test Performed by [facility], [address] [place] [address] Brendon Smith M.D., Ph.D., Director of Laboratories , [facility] [id number] Please note: ??Effective 02/03/2016, HPV testing will be performed using [employer]'s APTIMA test which targets mRNA. Detecting mRNA instead of DNA, as in older methods, offers significant improvements in specificity. 06/16/2018 9:10 AM EST Zaina Saba CNM HISTORICAL/NON ORDERABLE LABS Final Result [facility] [address] * Pap Smear (06/16/2018) Pap Negative for intraephithelial lesion or malignancy Negative for intraephithelial lesion or malignancy, Other HPV Undetected 06/16/2018 Historical Provider MD HEALTH MAINTENANCE Final Result from Last 3 Months or Most Recently Relevant to Health Maintenance Insurance [facility] PPO Care Teams Outreach Nurse Relationship Specialty Start Date End Date Valentine Lagunas NP [address] [place] [id number] PCP - General Family Medicine 11/18/23
[2024-06-20 16:13] LABS: MANUAL DIFF FLAG NO
[2024-06-20 16:26] LABS: Basophils Absolute Auto 0.1 X10*3/uL (0.0-0.2); Basophils Percent Auto 1.1 % (0-2); Eosinophils Absolute Auto 0.2 X10*3/uL (0.0-0.4); Eosinophils Percent Auto 3.8 % (0-4); Hematocrit 42.1 % (37.0-47.0); Hemoglobin 14.9 g/dl (12.0-16.0); Imm Gran Abs Auto 0.02 X10*3/uL (0.00-0.03); Imm Gran Pct Auto 0.4 % (0.0-0.4); Lymphocytes Absolute Auto 1.8 X10*3/uL (1.2-4.9); Lymphocytes Percent Auto 32.4 % (20-40); Mean Corpuscular HGB Conc 35.4 g/dl (31.0-35.0); Mean Corpuscular Hemoglobin 31.4 pg (27.0-33.0); Mean Corpuscular Volume 88.6 fL (80.0-98.0); Mean Platelet Volume 12.4 fL (9.4-12.3); Monocytes Absolute Auto 0.5 X10*3/uL (0.1-1.2); Monocytes Percent Auto 8.8 % (2-11); Neutrophils Percent Auto 53.5 % (45-73); Platelet Count 257 X10*3/uL (160-400); Red Blood Count 4.75 X10*6/uL (4.20-5.50); Red Cell Distribution Width 13.1 % (11.0-16.0); White Blood Count 5.6 X10*3/uL (4.8-10.8)
[2024-06-20 16:37] LABS: Estimated Average Glucose 94 mg/dL; Hemoglobin A1C 113.7699 umol/L; Hemoglobin A1c % 4.9 % (<6.0); Total Hemoglobin (HGBA1C) 3826.4992 umol/L
[2024-06-20 16:50] LABS: Alanine Aminotransferase 18 U/L (0-31); Albumin Level 4.2 g/dL (3.5-5.0); Alkaline Phosphatase 100 U/L (39-117); Anion Gap 11 (12-20); Aspartate Amino Transferase 19 U/L (5-31); Bilirubin Total 0.6 mg/dL (0.0-1.0); Blood Urea Nitrogen 14 mg/dL (9-16); Calcium 8.8 mg/dL (8.4-10.2); Carbon Dioxide 27 mmol/L (22-29); Chloride 107 mmol/L (96-108); Cholesterol 181 mg/dL (<200); Estimated Glomerular Filt Rate > 60; Glucose Random 88 mg/dL (60-115); HDL Cholesterol 50 mg/dL (>40); LDL Cholesterol Calculated 109 mg/dL (<100); Potassium 3.7 mmol/L (3.3-5.1); Sodium 141 mmol/L (135-145); Total Protein 7.4 g/dL (6.5-8.0); Triglycerides 113 mg/dL (<150)
== END 2024-06-20 14:06 | disposition home or self-care (01) ==
LOC: HO.HHCL 14:05
PROVIDERS: Visit Provider Nurse Practitioner Family
DX: Z00.00 Encounter for general adult medical examination without abnormal findings (principal); Z13.1 Encounter for screening for diabetes mellitus; Z13.6 Encounter for screening for cardiovascular disorders; R50.9 Fever, unspecified
CPT/HCPCS: 36415; 80053; 80061; 83036; 85025

== ENCOUNTER 2024-07-18 18:09 | Outpatient (REF) | payer BC, SELFPAY ==
--- OUTSIDE RECORDS SUMMARY | 2024-07-18 20:03 | XMS_ITS | Clinical Summary ---
Author Organization [facility] Address [address] [place] [address] Phone Care Team Providers Care Defence Force Senior Officer Name Role Phone Me Pashalisa Primary Care Provider Unavaila ble Allergies Active [...] HOSPITAL [place]ICA[place] [facility] Care Teams Defence Force Senior Officer Relationship Specialty Start Date End Date Tom Pak PCP - General Internal Medicine 05/13/22
--- OUTSIDE RECORDS SUMMARY | 2024-07-18 20:03 | XMS_ITS | Encounter Summary ---
Author Organization [facility] Address [address] [place] [address] Care Team Providers Care Ice Maker Name Role Phone Abby Cat MD Primary Care Provider Yoselin vailaVictoria Whitten MD Primary Care Provider Unava ilable [facility], [facility] Primary Care Provider Victoria Mena MD Primary Care Provider Unava ilable Anselmo Dorantes MD Primary Care Provider Victoria Mena MD Primary Care Provider Unava ilable Casey Blunt MD Primary Care Provider [phone] Encounter Details Date Type Department Care Team Description 08/01/2016 Release of Information Medical Records [address] [place] [id number] Abstract, Provider Social History Tobacco Use Types Packs/Day Years Used Date Smoking Tobacco: Never Smokeless Tobacco: Never Alcohol Use Standard Drinks/Week Comments Yes 0 (1 standard drink = 0.6 oz pur e alcohol) rare Sex Assigned at Date Recorded Not on file documented as of this encounter Plan of Treatment Not on file documented as of this encounter Visit Diagnoses Not on filedocumented in this encounter Care Teams Ice Maker Relationship Specialty Start Date End Date Abby Cat MD PCP - General Internal Medicine 11/12/15 06/24/17 Victoria Montanez MD PCP - General Internal Medicine 06/25/17 10/05/17 [facility], Pcp PCP - General Internal Medicine 10/06/17 10/20/17 Victoria Montanez MD PCP - General Internal Medicine 10/21/17 06/15/19 Name, MD Anselmo PCP - General Internal Medicine 06/16/19 06/10/20 Victoria Montanez MD PCP - General Internal Medicine 06/11/20 03/11/21 Casey Blunt MD [address] [place] [address] PCP - General Internal Medicine 03/12/21 documented as of this encounter
--- OUTSIDE RECORDS SUMMARY | 2024-07-18 20:03 | XMS_ITS | Encounter Summary ---
Author Organization [facility] Address [address] [place] [address] Care Team Providers Care Retirement Actuary Name Role Phone Victoria Montanez MD Primary Care Provider Unava ilable Abby Cat MD Primary Care Provider Yoselin vailable Victoria Montanez MD Primary Care Provider Unava ilable [facility] Primary Care Provider Victoria Mena MD Primary Care Provider Unava ilable Anselmo Dorantes MD Primary Care Provider Victoria Mena MD Primary Care Provider Unava ilable Casey Blunt MD Primary Care Provider [phone] Encounter Details Date Type Department Care Team Description 08/22/2013 Natural Gas Engineer Report Medical Records [address] [place] [address] Lance Alonso Social History Tobacco Use Types Packs/Day Years Used Date Smoking Tobacco: Never Smokeless Tobacco: Never Alcohol Use Standard Drinks/Week Comments Yes 0 (1 standard drink = 0.6 oz pur e alcohol) 1-2 drinks per mo Sex Assigned at Date Recorded Not on file documented as of this encounter Plan of Treatment Not on file documented as of this encounter Visit Diagnoses Not on filedocumented in this encounter Care Teams Retirement Actuary Relationship Specialty Start Date End Date Victoria Montanez MD PCP - General 04/10/10 11/11/15 Abby Cat MD PCP - General Internal Medicine 11/12/15 06/24/17 Victoria Montanez MD PCP - General Internal Medicine 06/25/17 10/05/17 [facility], Pcp PCP - General Internal Medicine 10/06/17 10/20/17 Victoria Montanez MD PCP - General Internal Medicine 10/21/17 06/15/19 Anselmo Dorantes MD PCP - General Internal Medicine 06/16/19 06/10/20 Victoria Montanez MD PCP - General Internal Medicine 06/11/20 03/11/21 Casey Blunt MD [address] [place] [address] PCP - General Internal Medicine 03/12/21 documented as of this encounter
--- OUTSIDE RECORDS SUMMARY | 2024-07-18 20:03 | XMS_ITS | Encounter Summary ---
Author Organization [facility] Address [address] [place] [address] Care Team Providers Care Pathological Technician Name Role Phone Victoria Montanez MD Primary Care Provider Unava ilable Abby Cat MD Primary Care Provider Yoselin vailable Victoria Montanez MD Primary Care Provider Unava ilable [facility] Primary Care Provider Victoria Mena MD Primary Care Provider Unava ilable Anselmo Dorantes MD Primary Care Provider Victoria Mena MD Primary Care Provider Unava ilable Casey Blunt MD Primary Care Provider [phone] Encounter Details Date Type Department Care Team Description 05/16/2013 Wash Plant Operator Report Medical Records [address] [place] [address] [place], [place] Social History Tobacco Use Types Packs/Day Years [...] on filedocumented in this encounter Care Teams Pathological Technician Relationship Specialty Start Date End Date Victoria Montanez MD PCP - General 04/10/10 11/11/15 Abby Cat MD PCP - General Internal Medicine 11/12/15 06/24/17 Victoria Montanez MD PCP - General Internal Medicine 06/25/17 10/05/17 [facility], Pcp PCP - General Internal Medicine 10/06/17 10/20/17 Victoria Montanez MD PCP - General Internal Medicine 10/21/17 06/15/19 Anselmo Dorantes MD PCP - General Internal Medicine 06/16/19 06/10/20 Victoria Montanez MD PCP - General Internal Medicine 06/11/20 03/11/21 Casey Blunt MD [address] [place] [id number] PCP - General Internal Medicine 03/12/21 documented as of this encounter
--- OUTSIDE RECORDS SUMMARY | 2024-07-18 20:03 | XMS_ITS | Encounter Summary ---
Author Organization [facility] Address [address] [place] [address] Care Team Providers Care Optical Instrument Repairer Name Role Phone Casey Blunt MD Primary Care Provider [phone] Reason for Visit * Reason Onset Date Comments Prior Authorization 03/31/2021 CT ABD/Pelvi s Encounter Details Date Type Department Care Team Description 03/31/2021 Telephone Adult Medicine B - [place] [address] [place] [address] Cheryl Rosen APRN Prior Authorization (CT ABD/Pelvis) Social History Tobacco Use Types Packs/Day Years Used Date Smoking Tobacco: Never Smokeless Tobacco: Never Alcohol Use Standard Drinks/Week Comments Yes 0 (1 standard drink = 0.6 oz pur e alcohol) rare Sex Assigned at Date Recorded Not on file COVID-19 Exposure Response Date Recorded In the last month, have you been in contact with someone who was confirmed or suspected to have Coronavirus / COVID-19? No / Unsure 03/31/2021 2:37 PM EST documented as of this encounter Miscellaneous Notes * Telephone Encounter - Mallory Santiago - 04/09/2021 8:47 AM EST I believe part of the problem is the patient is under a different name with the insurance company. We have her last name as Haydee and insurance has it as Jaimie. I did submit the clinicals and have all the documentaion of that, I will be happy to resubmit, However if I do that and it denies again that will possibly take away the right to The peer to peer. Please let me know how you would like to proceede. Thank you, Mallory Santiago Prior Auth [id number] * Telephone Encounter - Mallory Santiago - 04/07/2021 8:[address] ABD/Pelvis denied by insurance Denial reason Criteria not met. All clinicals were sent. To do a peer to peer please call [phone], refer to . Thank you, Mallory Santiago Prior Auth [id number] * Telephone Encounter - Mallory Santiago - 04/01/2021 10:03 AM EST Auth pending with insurance Thank you, Mallory Santiago Prior Auth [id number] * Telephone Encounter - Mallory Santiago - 03/31/2021 3:38 PM EST Please complete notes so we can submit for authorization with insurance. Thank you, Mallory Santiago Prior Auth [phone] documented in this encounter Plan of Treatment Not on file documented as of this encounter Visit Diagnoses Not on filedocumented in this encounter Care Teams Optical Instrument Repairer Relationship Specialty Start Date End Date Casey Blunt MD [address] [place] [id number] PCP - General Internal Medicine 03/12/21 documented as of this encounter
--- OUTSIDE RECORDS SUMMARY | 2024-07-18 20:03 | XMS_ITS | Encounter Summary ---
Author Organization [facility] Address [address] [place] [address] Care Team Providers Care Specialist Physician Name Role Phone Victoria Montanez MD Primary Care Provider Unava ilable Anselmo Dorantes MD Primary Care Provider Unavailabl e Victoria Montanez MD Primary Care Provider Unava ilable Casey Blunt MD Primary Care Provider [phone] Encounter Details Date Type Department Care Team Description 02/18/2018 Veterinary Technologist Report Medical Records [address] [place] [address] Génesis Loco Social History Tobacco Use Types Packs/Day Years [...] on filedocumented in this encounter Care Teams Specialist Physician Relationship Specialty Start Date End Date Victoria Montanez MD PCP - General Internal Medicine 10/21/17 06/15/19 Anselmo Dorantes MD PCP - General Internal Medicine 06/16/19 06/10/20 Victoria Montanez MD PCP - General Internal Medicine 06/11/20 03/11/21 Casey Blunt MD [address] [place] [address] [id number] PCP - General Internal Medicine 03/12/21 documented as of this encounter
--- OUTSIDE RECORDS SUMMARY | 2024-07-18 20:03 | XMS_ITS | Encounter Summary ---
Author Organization [facility] Address [address] [place] [address] Care Team Providers Care Production Reproduction Manager Name Role Phone Victoria Montanez MD Primary Care Provider Unava ilable Abby Cat MD Primary Care Provider Yoselin vailable Victoria Montanez MD Primary Care Provider Unava ilable [facility] Primary Care Provider Victoria Mena MD Primary Care Provider Unava ilable Anselmo Dorantes MD Primary Care Provider Victoria Mena MD Primary Care Provider Unava ilable Casey Blunt MD Primary Care Provider [phone] Encounter Details Date Type Department Care Team Description 08/09/2013 Release of Information Medical Records [address] [place] [id number] Abstract, Provider Social History Tobacco Use Types [...] on filedocumented in this encounter Care Teams Production Reproduction Manager Relationship Specialty Start Date End Date Victoria Montanez MD PCP - General 04/10/10 11/11/15 Abby Cat MD PCP - General Internal Medicine 11/12/15 06/24/17 Victoria Montanez MD PCP - General Internal Medicine 06/25/17 10/05/17 [facility] PCP - General Internal Medicine 10/06/17 10/20/17 Victoria Montanez MD PCP - General Internal Medicine 10/21/17 06/15/19 Anselmo Dorantes MD PCP - General Internal Medicine 06/16/19 06/10/20 Victoria Montanez MD PCP - General Internal Medicine 06/11/20 03/11/21 Casey Blunt MD [address] [place] [address] PCP - General Internal Medicine 03/12/21 documented as of this encounter
--- OUTSIDE RECORDS SUMMARY | 2024-07-18 20:03 | XMS_ITS | Encounter Summary ---
Author Organization [facility] Address [address] [place] [address] Care Team Providers Care Glass Breaker Name Role Phone Casey Blunt MD Primary Care Provider [phone] Encounter Details Date Type Department Care Team Description 12/29/2023 Orders Only Medical Records [address] [place] [id number] Casey Blunt MD [address] [place] [address] Social History Tobacco Use Types Packs/Day Years Used Date Smoking Tobacco: Never Smokeless Tobacco: Never Alcohol Use Standard Drinks/Week Comments Yes 0 (1 standard drink = 0.6 oz pur e alcohol) rare Sex Assigned at Date Recorded Not on file documented as of this encounter Plan of Treatment Not on file documented as of this encounter Procedures Procedure Name Priority Date/Time Associated Diagnosis Comments OUTSIDE MAMMO Routine 11/24/2023 documented in this encounter Results * OUTSIDE MAMMO (11/24/2023) Casey Blunt MD RADIOLOGY documented in this encounter Visit Diagnoses Not on filedocumented in this encounter Care Teams Glass Breaker Relationship Specialty Start Date End Date Casey Blunt MD [address] [place] [address] [id number] PCP - General Internal Medicine 03/12/21 documented as of this encounter
--- OUTSIDE RECORDS SUMMARY | 2024-07-18 20:03 | XMS_ITS | Encounter Summary ---
Author Organization [employer] Address [address] [facility] 7[address] [place] [address] Care Team Providers Care Farm Agent Name Role Phone Valentine Lagunas ESSIE Primary Care Provider [phone] Reason for Visit * Reason Onset Date Comments Chart Prep 07/11/2024 Encounter Details Date Type Department Care Team ([facility] st Contact Info) Description 07/11/2024 Telephone [facility] MEDICINE [address], [place] [phone] Rosi Cannon MA Chart Prep Social History [...] the past 12 months, has t he [employer], gas, oil or water company threatened to [...] Telephone Encounter - Rosi Cannon MA - 07/11/2024 2:45 PM EST Chart Prep Labs: done Images: done Vaccines due: Covid, Hep B, PCV20, Flu Referrals: Orthopedic surgeon, Referral was mailed to pt. [facility] Orthopedics tried calling pt several times to schedule appt and pt hasn't called back. Screenings: HIV, Hep C Overdue care gaps: PHQ-9 documented in this encounter Plan of Treatment Upcoming Encounters Date Type Department Care Team (Late st Contact Info) Description 08/08/2024 1:30 PM EDT Office Visit [facility] MEDICINE [address] [place] [address] Valentine Lagunas NP [address] [place] [address] documented as of this encounter Visit Diagnoses Not on filedocumented in this encounter Additional Health Concerns Assessment Noted Time PHQ-9 Depression Total Score: 15 024 12:05 PM EDT documented as of this encounter Care Teams Farm Agent Relationship Specialty Start Date End Date Valentine Lagunas NP [address] [place] [address] PCP - General Family Medicine 11/18/23 documented as of this encounter
--- OUTSIDE RECORDS SUMMARY | 2024-07-18 20:03 | XMS_ITS | Encounter Summary ---
Author Organization [facility] Address [address] [place] [address] Care Team Providers Care Clinical Lab Clerk Name Role Phone Victoria Montanez MD Primary Care Provider Unawv Casey Keith MD Primary Care Provider [phone] Encounter Details Date Type Department Care Team Description 08/21/2020 Stitch Rubber Report Medical Records [address] [place] [address] Medina Bruno MD Social History Tobacco Use Types Packs/Day [...] have Coronavirus / COVID-19? No / Unsure 07/24/2020 2:46 PM EST documented as of this encounter Plan of Treatment Not on file documented as of this encounter Visit Diagnoses Not on filedocumented in this encounter Care Teams Clinical Lab Clerk Relationship Specialty Start Date End Date Victoria Montanez MD PCP - General Internal Medicine 06/11/20 03/11/21 Casey Blunt MD [address] [place] [address] PCP - General Internal Medicine 03/12/21 documented as of this encounter
--- OUTSIDE RECORDS SUMMARY | 2024-07-18 20:03 | XMS_ITS | Encounter Summary ---
Author Organization [facility] Address [address] [place] [address] Care Team Providers Care Tester Waste Disposal Leakage Name Role Phone Name, Anselmo PASCAL Primary Care Provider Victoria Mena MD Primary Care Provider Casey Scanlon MD Primary Care Provider [phone] Reason for Visit * Reason Comments E-prescribe Rx Request Encounter Details Date Type Department Care Team Description 03/03/2020 Refill [address] [place] [address] Omega Warren PA-C E-prescribe Rx Request Social History Tobacco Use Types Packs/Day Years Used Date Smoking Tobacco: Never Smokeless Tobacco: Never Alcohol Use Standard Drinks/Week Comments Yes 0 (1 standard drink = 0.6 oz pur e alcohol) rare Sex Assigned at Date Recorded Not on file documented as of this encounter Miscellaneous Notes * Telephone Encounter - Caitlyn Franklin - 03/12/2020 2:52 PM EDT Patient informed of message below. * Telephone Encounter - Omega Warren PA-C - 03/12/2020 1:03 PM EDT I have sent in a prescription for Spironolactone 100 mg that I would like her to take once a day .... please encourage her to contact me in 2 months to update me on response or anytime with questions/concerns. Please have her go to [email or web address] to investigate antiandrogen therapy .... thanks * Telephone Encounter - Caitlyn Franklin - 03/04/2020 2:18 PM EDT Spoke to patient, says the minocycline doesn't work and would like an alternative. Patient states she's allergic to antibiotics. documented in this encounter Plan of Treatment Not on file documented as of this encounter Visit Diagnoses Not on filedocumented in this encounter Care Teams Tester Waste Disposal Leakage Relationship Specialty Start Date End Date Name, MD Anselmo PCP - General Internal Medicine 06/16/19 06/10/20 Victoria Montanez MD PCP - General Internal Medicine 06/11/20 03/11/21 Casey Blunt MD [address] [place] [phone] PCP - General Internal Medicine 03/12/21 documented as of this encounter
--- OUTSIDE RECORDS SUMMARY | 2024-07-18 20:03 | XMS_ITS | Clinical Summary ---
Author Organization [facility] Address [address] [place] [address] Care Team Providers Care Gambling Cashier Name Role Phone Casey Blunt MD Primary Care Provider [phone] Allergies Active Allergy Reactions Severity Noted Date Comments Apap-Fd&C Blue #1-Oxycodone Nausea and Vomiting 06/19/2019 Medications Medication Sig Dispensed Refills Start Date End Date Status buPROPion (WELLBUTRIN XL) 300 MG 24 hr tablet TOME GENARO TABLETA POR V?A ORAL TODOS LOS D? EN LA MA?FAHEEM FOR DEPRESSION 0 05/26/2019 Active clindamycin (CLEOCIN T) 1 % lotion APLIQUE AL ?CELI AFECTADA DOS VECES AL D?A 0 05/20/2019 Active clonidine (CATAPRES) 0.1 MG tablet TOME GENARO TABLETA POR V?A ORAL TODOS LOS D? AL ACOSTARSE 0 05/08/2019 Active docusate sodium (COLACE) 100 MG capsule TAKE 1 CAPSULE BY MOUTH 2 TIMES EVERY DAY NEEDED FOR CONSTIPATION 0 04/27/2019 Active Fluocinolone Acetonide Scalp 0.01 % Oil APPLY A THIN LAYER TO THE AFFECTED AREA TOPICALLY TWICE DAILY 0 03/13/2019 Active hydrOXYzine (ATARAX) 25 MG tablet TOME DOS TABLETAS POR V?A ORAL DOS VECES AL D?A 0 05/26/2019 Active sertraline (ZOLOFT) 100 MG tablet TOME DOS TABLETAS POR V?A ORAL TODOS LOS D? EN LA MA?FAHEEM FOR DEPRESSION/ANXIETY 0 05/26/2019 Active spironolactone (ALDACTONE) 100 MG tablet Take 1 tablet by mouth daily for 360 days. 30 tablet 5 12/19/2020 Active famotidine (PEPCID) 20 MG tablet Take 1 tablet by mouth 2 times daily. 60 tablet 5 04/21/2021 Active Active Problems Problem Noted Date Numbness and tingling in right hand 01/2015 Overview: Saw Dr. Alonso for this, referred for EMG Constipation 04/10/2014 Migraine 12/24/2010 H. pylori infection 10/13/2010 Overview: +IGM and +IGG Panic attacks 07/08/2010 HTN (hypertension) 04/14/2010 Resolved Problems Problem Noted Date Resolved Date Shortness of breath 10/06/2010 07/24/2020 Immunizations Name Administration Dates Next Due Influenza (> 6 Months) 03/16/2013 Tdap 10/13/2011 Family History Medical History Relation Name Comments No Known Problems Brother x2 HIV Father ? cancer Father's side 1 ? mets, kimble rnal cousin Cancer of the Colon Father's side 2 Hypertension Mother DM, depression No Known Problems Sister x3 Relation Name Status Comments Brother Alive Father Father's side 1 Father's side 2 Mother Alive Sister Alive Social History Tobacco Use Types Packs/Day Years Used Date Smoking Tobacco: Never Smokeless Tobacco: Never Alcohol Use Standard Drinks/Week Comments Yes 0 (1 standard drink = 0.6 oz pur e alcohol) rare Sex Assigned at Date Recorded Not on file Last Filed Vital Signs Vital Sign Reading Time Taken Comments Blood Pressure 120/72 03/31/2021 3:00 PM EST Pulse 60 03/31/2021 3:00 PM EST Temperature 36.8 ??C (98.2 ??F) 03/31/2021 3:00 PM ES T Respiratory Rate 17 03/31/2021 3:00 PM EST Oxygen Saturation 97% 07/16/2017 2:04 PM EST Inhaled Oxygen Concentration - - Weight 78.9 kg (174 lb) 03/31/2021 3:00 PM EST Height 154.9 cm (5' 1 ) 03/31/2021 3:00 PM EST Body Mass Index 32.88 03/31/2021 3:00 PM EST Plan of Treatment Health Maintenance Due Date Last Done Comments Covid-19 Vaccine (#1) 1972 CERVICAL CANCER SCREENING 07/22/2018 07/23/2015, COLON CANCER SCREENING 2022 SHINGLES VACCINE (1 of 2) 2022 BASELINE HEALTH EXAM 40-64 07/24/202207/24, 04/10/2014, 03/16/2013, Additional history exists INFLUENZA (#1) 2024 07/24/2020 (Refu sed), 03/16/2013 BMI CHECK/ADVISE 05/24/2024 07/24/2020, 07/2020 (Completed), 06/19/2019, Additional history exists MAMMOGRAM 11/23/2024 11/24/2023, 05/2020 (External Completion), 10/08/2014, Additional history exists CHOLESTEROL SCREENING 07/24/2025 07/24/2020 , 08/06/2017, 06/29/2014, Additional history exists DTAP/TDAP/TD (3 - Td or Tdap) 11/25/2028 11/25/2018, 10/13/2011 PNEUMOCOCCAL VACCINE FOR HIG H RISK PATIENTS (#1) 2037 Care Teams Gambling Cashier Relationship Specialty Start Date End Date Casey Blunt MD [address] [place] [address] [phone] PCP - General Internal Medicine 03/12/21
--- OUTSIDE RECORDS SUMMARY | 2024-07-18 20:03 | XMS_ITS | Encounter Summary ---
Author Organization [employer] Address [address] [facility] 7t [place] [address] Care Team Providers Care Print Traffic Manager Name Role Phone Valentine Lagunas NP Primary Care Provider [phone] Encounter Details Date Type Department Care Team (Latest Contact Info) Description 07/18/2024 1:00 PM EST Procedure Visit [facility] MEDICINE [address] [place], [place] [phone] Valentine Lagunas NP [address] [place], [place] [phone] Pap smear for cervical cancer screening (Primary Dx); Weight gain; Hypertension, unspecified type; Vaginal discharge Social History Tobacco Use Types Packs/Day Years [...] Reading Time Taken Comments Blood Pressure 154/82 07/18/2024 1:04 PM EST Pulse 57 07/18/2024 1:04 PM EST Temperature 35.8 ??C (96.5 ??F) 07/18/2024 1:04 PM ES T Respiratory Rate 16 07/18/2024 1:04 PM EST Oxygen Saturation 98% 07/18/2024 1:04 PM EST Inhaled Oxygen Concentration - - Weight 74.5 kg (164 lb 3.2 oz) 07/18/2024 1:04 P M EST Height 157.5 cm (5' 2 ) 07/18/2024 1:04 PM EST Body Mass Index 30.03 07/18/2024 1:04 PM EST documented in this encounter Progress Notes * Valentine Lagunas NP - 07/18/2024 1:00 PM EST Paulina SotoHaydee Jaimie presents for pap Lmp: menopausal, lmp 2-3 years ago Sexual activity- amab Pap history - no hx of abnormal but it has been a long time : 7 2 miscarraiges 5 births 4 children Current concerns : vaginal discharge and odor, started last year, comes and goes, yellow,not fishy,nothing makes it worse or better No pain and no pain during intercourse, Would like to discuss wt gain during menopause Would like sti screen Patient Active Problem List Diagnosis HTN (hypertension) Chronic kidney disease, stage 2 (mild) Gastroesophageal reflux disease History of Helicobacter pylori infection Posttraumatic stress disorder 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) Panic attacks Migraine Herpes simplex DEBI (generalized anxiety disorder) Fever Pain of right upper extremity Dietary counseling Exercise counseling Acute carpal tunnel syndrome of right wrist Cervical cancer screening Health care maintenance Depression Colon cancer screening Screening for colon cancer Eczema Snoring Pap smear for cervical cancer screening Weight gain Vaginal discharge Social History Socioeconomic History Marital status: Spouse name: Not on file Number of children: Not on file Years of education: Not on file Highest education level: Not on file Occupational History Not on file Tobacco Use Smoking status: Never Smokeless tobacco: Never Vaping Use Vaping status: Never Used Substance and Sexual Activity Alcohol use: Yes Comment: socially Drug use: Not Currently Comment: 2 months ago, smoked Sexual activity: Not on file Other Topics Concern Not on file Social History Narrative Not on file Social Drivers of Health Food Insecurity: Low Risk (12/31/2023) Food Insecurity Within the past 12 months, you worried that your food would run out before you got money to buy more:: Never True Within the past 12 months,the food you bought just didn't last and you didn't have enough money to get more: : Never True Transportation Needs: Low Risk (12/31/2023) Transportation In the past 12 months, has lack of transportation kept you from medical appts, meetings, work or from getting things needed for daily living? : No Intimate Partner Violence: Not on file Housing Stability: Low Risk (12/31/2023) Housing Stability What is your housing situation today?: I have housing Think about the place you live. Do you have problems with any of the following? : None of the above Review of Systems Constitutional: Negative for activity change and appetite change. Respiratory: Negative for chest tightness. Cardiovascular: Negative for chest pain, palpitations and leg swelling. Genitourinary: Positive for vaginal discharge. Negative for vaginal bleeding and vaginal pain. Musculoskeletal: Negative for arthralgias. BP (!) 154/82 (BP Location: Right arm, Patient Position: Sitting, BP Cuff Size: Adult) Pulse 57 Temp 96.5 ??F (35.8 ??C) (Temporal) Resp 16 Ht 5' 2 (1.575 m) Wt 164 lb 3.2 oz (74.5 kg) BMI 30.03 kg/m?? Physical Exam Vitals reviewed. HENT: Head: Normocephalic and atraumatic. Nose: Nose normal. Eyes: Conjunctiva/sclera: Conjunctivae normal. Cardiovascular: Rate and Rhythm: Normal rate and regular rhythm. Pulmonary: Effort: Pulmonary effort is normal. Breath sounds: Normal breath sounds. Genitourinary: Vagina: No signs of injury. No vaginal discharge. Cervix: Normal. No discharge or erythema. Musculoskeletal: Cervical back: Normal range of motion and neck supple. Neurological: General: No focal deficit present. Mental Status: She is alert. LABS: Lab Results Component Value Date CHOL 181 06/20/2024 CHOL 197 01/17/2024 Lab Results Component Value Date HDL 50 06/20/2024 HDL 54 01/17/2024 No results found for: LDLCALC Lab Results Component Value Date TRIG 113 06/20/2024 TRIG 124 01/17/2024 No results found for: CHOLHDL Current Outpatient Medications: amLODIPine (Norvasc) 10 MG tablet, Take 1 tablet (10 mg) by mouth Once per day., Disp: 30 tablet, Rfl: 11 buPROPion SR (Wellbutrin SR) 100 MG 12 hr tablet, Take 1 tablet (100 mg) by mouth Once per day. Do not crush, chew, or split., Disp: 30 tablet, Rfl: 2 Diclofenac Sodium 1 % gel, Apply 2 g topically if needed in the morning, at noon, in the evening, and at bedtime (pain)., Disp: 150 g, Rfl: 3 lisinopril (Prinivil) 10 MG tablet, Take 1 tablet (10 mg) by mouth Once per day., Disp: 30 tablet, Rfl: 11 triamcinolone (Kenalog) 0.1 % cream, Apply topically if needed in the morning and at bedtime (pain and swelling)., Disp: 30 g, Rfl: 2 Problem List Items Addressed This Visit HTN (hypertension) Current Assessment & Plan Above goal Pt will measure bp at home Pap smear for cervical cancer screening - Primary Relevant Orders Pap Smear HPV High Risk with Reflex to Subtypes STI testing add on (NG, CT, Trich) Weight gain Current Assessment & Plan Reviewed healthy habits particularly those that support stable wt post menopause Vaginal discharge Current Assessment & Plan Reassuring exam today Bv panel and sti panel Relevant Orders Bacterial Vaginosis Panel documented in this encounter Miscellaneous Notes * Assessment & Plan Note - Valentine Lagunas NP - 07/18/2024 1:35 PM ESTAssociated Problem(s): Weight gain Reviewed healthy habits particularly those that support stable wt post menopause * Assessment & Plan Note - Valentine Lagunas NP - 07/18/2024 1:34 PM ESTAssociated Problem(s): Vaginal discharge Reassuring exam today Bv panel and sti panel * Assessment & Plan Note - Valentine Lagunas NP - 07/18/2024 1:34 PM ESTAssociated Problem(s): HTN (hypertension) Above goal Pt will measure bp at home documented in this encounter Plan of Treatment Upcoming Encounters Date Type Department Care Team (Late st Contact Info) Description 08/08/2024 1:30 PM EDT Office Visit [facility] MEDICINE [address] [place] [address] Valentine Lagunas NP [address] [place] [address] Scheduled Orders Name Type Priority Associated Diagnoses Order Schedule Pap Smear Pathology and Cytology Routine Pap smear for cervical cancer screening Ordered: 07/18/2024 HPV High Risk with Reflex to Subtypes Lab Routine Pap smear for cervical cancer screening Ordered: 07/18/2024 STI testing add on (NG, CT, Trich) Pathology and Cytology Routine Pap smear for cervical cancer screening Ordered: 07/18/2024 Bacterial Vaginosis Panel Microbiology Routine Vaginal discharge Ordered: 07/18/2024 documented as of this encounter Visit Diagnoses Diagnosis Pap smear for cervical cancer screening- Primary Screening for malignant neoplasm of the cervix Weight gain Other symptoms concerning nutrition, metabolism, and development Hypertension, unspecified type Vaginal discharge Leukorrhea, not specified as infective documented in this encounter Additional Health Concerns Assessment Noted Time PHQ-9 Depression Total Score: 15 024 12:05 PM EDT documented as of this encounter Care Teams Print Traffic Manager Relationship Specialty Start Date End Date Valentine Lagunas NP [address] [place] [address] PCP - General Family Medicine 11/18/23 documented as of this encounter
--- OUTSIDE RECORDS SUMMARY | 2024-07-18 20:03 | XMS_ITS | Encounter Summary ---
Author Organization [facility] Address [address] [place] [address] Care Team Providers Care Cool Roofing Installer Name Role Phone Name, Anselmo PASCAL Primary Care Provider Victoria Mena MD Primary Care Provider Unava ilable Casey Blunt MD Primary Care Provider [phone] Encounter Details Date Type Department Care Team Description 07/02/2019 Pt. Non Urgent Medic al Question Gastroenterology - [address] [place] [address] Alexys Murrieta PA-C Social History Tobacco Use Types Packs/Day Years [...] on filedocumented in this encounter Care Teams Cool Roofing Installer Relationship Specialty Start Date End Date Name, MD Anselmo PCP - General Internal Medicine 06/16/19 06/10/20 Victoria Montanez MD PCP - General Internal Medicine 06/11/20 03/11/21 Casey Blunt MD [address] [place] [address] [id number] PCP - General Internal Medicine 03/12/21 documented as of this encounter
--- OUTSIDE RECORDS SUMMARY | 2024-07-18 20:03 | XMS_ITS | Encounter Summary ---
Author Organization [employer] [facility] Address [address] [place] [address] Care Team Providers Care Logistics Loss Prevention Manager Name Role Phone Deepika RiderP Primary Care Provider [phone] Beverly Michelle NP Primary Care Provider [phone] Deepika Rider LINING MACHINE OPERATOR Primary Care Provider [phone] Valentine Lagunas NP Primary Care Provider [phone] Encounter Details Date Type Department Care Team (Late st Contact Info) Description 11/05/2022 Abstract [facility] [address] [place], [place] [phone] Deepika Rider FNP [address] [place], [place] [phone] Social History Tobacco Use Types Packs/Day Years [...] Description 08/08/2024 1:30 PM EDT Office Visit [facility] [address] [place], [place] [phone] Valentine Lagunas NP [address] [place], [place] [phone] documented as of this encounter Procedures Procedure Name Priority Date/Time Associated Diagnosis Comments HM COLONOSCOPY Routine 06/19/2020 10:19 AM EST PAP/HPV Routine 06/16/2018 documented in this encounter Results * Colonoscopy (06/19/2020 10:19 AM EST) Colonoscopy Normal Normal Narrative Petrona Mccarthy - 06/19/2020 10:19 AM EST Recommended 5 year follow up Historical Provider [facility] Edited Result - Final * Pap Smear (06/16/2018) Pap Negative for intraephithelial lesion or malignancy Negative for intraephithelial lesion or malignancy, Other HPV Undetected 06/16/2018 Historical Provider [facility] Final Result documented in this encounter Visit Diagnoses Not on filedocumented in this encounter Care Teams Logistics Loss Prevention Manager Relationship Specialty Start Date End Date Deepika Rider FNP [address] [place] [address] PCP - General Family Medicine 04/20/22 11/03/23 Beverly Michelle NP [address] [place] [address] PCP - General Family Medicine 11/04/23 11/08/23 Deepika Rider FNP [address] [place] [address] PCP - General Family Medicine 11/09/23 11/17/23 Valentine Lagunas NP [address] [place] [address] PCP - General Family Medicine 11/18/23 documented as of this encounter
--- OUTSIDE RECORDS SUMMARY | 2024-07-18 20:03 | XMS_ITS | Encounter Summary ---
Author Organization [facility] Address [address] [place] [address] Care Team Providers Care Bacon Skinner Name Role Phone Victoria Montanez MD Primary Care Provider Unava ilable Abby Cat MD Primary Care Provider Yoselin vailable Victoria Montanez MD Primary Care Provider Unava ilable [facility] Primary Care Provider Victoria Mena MD Primary Care Provider Unava ilable Anselmo Dorantes MD Primary Care Provider Victoria Mena MD Primary Care Provider Unava ilable Casey Blunt MD Primary Care Provider [phone] Encounter Details Date Type Department Care Team Description 03/14/2015 Hotel Services Sales Representative Report Medical Records [address] [place] [id number] Lance Alonso Social History Tobacco Use Types [...] on filedocumented in this encounter Care Teams Bacon Skinner Relationship Specialty Start Date End Date Victoria Montanez MD PCP - General 04/10/10 11/11/15 Abby Cat MD PCP - General Internal Medicine 11/12/15 06/24/17 Victoria Montanez MD PCP - General Internal Medicine 06/25/17 10/05/17 Count Includes [facility], Pcp PCP - General Internal Medicine 10/06/17 10/20/17 Victoria Montanez MD PCP - General Internal Medicine 10/21/17 06/15/19 Jayna, MD Anselmo PCP - General Internal Medicine 06/16/19 06/10/20 Victoria Montanez MD PCP - General Internal Medicine 06/11/20 03/11/21 Casey Blunt MD [address] [place] [id number] PCP - General Internal Medicine 03/12/21 documented as of this encounter
--- OUTSIDE RECORDS SUMMARY | 2024-07-18 20:03 | XMS_ITS | Encounter Summary ---
Author Organization [employer] Address [address] [place] [address] Care Team Providers Care High Density Press Operator Name Role Phone Valentine Lagunas ESSIE Primary Care Provider [phone] Encounter Details Date Type Department Care Team (Latest Contact Info) Description 07/18/2024 Travel Social History Tobacco Use Types Packs/Day Years [...] Description 08/08/2024 1:30 PM EDT Office Visit [facility] [address] [place] [address] Valentine Lagunas NP [address] [place] [address] documented as of this encounter Visit Diagnoses Not on filedocumented in this encounter Additional Health Concerns Assessment Noted Time PHQ-9 Depression Total Score: 15 024 12:05 PM EDT documented as of this encounter Care Teams High Density Press Operator Relationship Specialty Start Date End Date Valentine Lagunas NP [address] [place] [address] PCP - General Family Medicine 11/18/23 documented as of this encounter
--- OUTSIDE RECORDS SUMMARY | 2024-07-18 20:03 | XMS_ITS | Encounter Summary ---
Author Organization [facility] Address [address] [place] [address] Phone Care Team Providers Care Facilities Specialist Name Role Phone Tom Pak Primary Care Provider Unavaila ble Encounter Details Date Type Department Care Team (Late st Contact Info) Description 10/23/2021 Telephone [facility] [address] [place] [address] Nino El MD Social History [...] on filedocumented in this encounter Care Teams Facilities Specialist Relationship Specialty Start Date End Date Tom Pak PCP - General Internal Medicine 05/13/22 documented as of this encounter
--- OUTSIDE RECORDS SUMMARY | 2024-07-18 20:03 | XMS_ITS | Encounter Summary ---
Author Organization [facility] Address [address] [place] [address] Phone Care Team Providers Care Lap Checker Name Role Phone Tom Pak Primary Care Provider Unavaila ble Encounter Details Date Type Department Care Team (Late st Contact Info) Description 10/22/2021 Telephone [facility] [address] [place] [address] Nino El MD Social History [...] Message was cortexed to Dr. El Pt Nikky Hubbard 1970, pt called, both her feet are severaly swollen to the point were she cannot walk. She would like to speak with you for guidance. Please call her back at [phone] Thank you documented in this encounter Plan of Treatment Not on file documented as of this encounter Visit Diagnoses Not on filedocumented in this encounter Care Teams Lap Checker Relationship Specialty Start Date End Date Tom Pak PCP - General Internal Medicine 05/13/22 documented as of this encounter
--- OUTSIDE RECORDS SUMMARY | 2024-07-18 20:04 | XMS_ITS | Encounter Summary ---
Author Organization [facility] Address [address] [place] [address] Care Team Providers Care Senior Telecommunications Engineer Name Role Phone Victoria Montanez MD Primary Care Provider Unava ilable Abby Cat MD Primary Care Provider Yoselin vailable Victoria Montanez MD Primary Care Provider Unava ilable [facility] Primary Care Provider Victoria Mena MD Primary Care Provider Unava ilable Anselmo Dorantes MD Primary Care Provider Victoria Mena MD Primary Care Provider Unava ilable Casey Blunt MD Primary Care Provider [phone] Encounter Details Date Type Department Care Team Description 04/15/2010 Release of Information Medical Records [address] [place] [id number] Abstract, Provider Social History Tobacco Use Types Packs/Day Years Used Date Smoking Tobacco: Never Alcohol Use Standard Drinks/Week Comments No 0 (1 standard drink = 0.6 oz pur e alcohol) Sex Assigned at Date Recorded Not on file documented as of this encounter Plan of Treatment Not on file documented as of this encounter Visit Diagnoses Not on filedocumented in this encounter Care Teams Senior Telecommunications Engineer Relationship Specialty Start Date End Date Victoria Montanez MD PCP - General 04/10/10 11/11/15 Abby Cat MD PCP - General Internal Medicine 11/12/15 06/24/17 Victoria Montanez MD PCP - General Internal Medicine 06/25/17 10/05/17 [facility], Pcp PCP - General Internal Medicine 10/06/17 10/20/17 Victoria Montanez MD PCP - General Internal Medicine 10/21/17 06/15/19 Jayna, MD Anselmo PCP - General Internal Medicine 06/16/19 06/10/20 Victoria Montanez MD PCP - General Internal Medicine 06/11/20 03/11/21 Casey Blunt MD [address] [place] [address] PCP - General Internal Medicine 03/12/21 documented as of this encounter
--- OUTSIDE RECORDS SUMMARY | 2024-07-18 20:04 | XMS_ITS | Encounter Summary ---
Author Organization [facility] Address [address] [place] [address] Care Team Providers Care Shuttle Fitting Supervisor Name Role Phone Victoria Montanez MD Primary Care Provider Unava ilable Abby Cat MD Primary Care Provider Yoselin vailable Victoria Montanez MD Primary Care Provider Unava ilable [facility] Primary Care Provider Victoria Mena MD Primary Care Provider Unava ilable Anselmo Dorantes MD Primary Care Provider Victoria Mena MD Primary Care Provider Unava ilable Casey Blunt MD Primary Care Provider [phone] Encounter Details Date Type Department Care Team Description 12/10/2010 Environmental Monitoring Specialist Report Medical Records [address] [place] [id number] Bettie Covarrubias MD Social History Tobacco Use Types Packs/Day [...] on filedocumented in this encounter Care Teams Shuttle Fitting Supervisor Relationship Specialty Start Date End Date Victoria Montanez MD PCP - General 04/10/10 11/11/15 Abby Cat MD PCP - General Internal Medicine 11/12/15 06/24/17 Victoria Montanez MD PCP - General Internal Medicine 06/25/17 10/05/17 [facility], Pcp PCP - General Internal Medicine 10/06/17 10/20/17 Victoria Montanez MD PCP - General Internal Medicine 10/21/17 06/15/19 Anselmo Dorantes MD PCP - General Internal Medicine 06/16/19 06/10/20 Victoria Montanez MD PCP - General Internal Medicine 06/11/20 03/11/21 Casey Blunt MD [address] [place] [id number] PCP - General Internal Medicine 03/12/21 documented as of this encounter
--- OUTSIDE RECORDS SUMMARY | 2024-07-18 20:04 | XMS_ITS | Encounter Summary ---
Author Organization [employer] Address [address] [facility] [address] [place] [address] Care Team Providers Care Spinneret Cleaner Name Role Phone Valentine Lagunas NP Primary Care Provider [phone] Encounter Details Date Type Department Care Team (Late st Contact Info) Description 06/20/2024 1:00 PM EST Office Visit [facility] [address] [place], [place] [phone] Valentine Lagunas NP [address] [place], [place] [phone] Hypertension, unspecified type (Primary Dx); Health care maintenance; Depression, unspecified depression type; Colon cancer screening; Screening for colon cancer; Eczema, unspecified type; 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 female who presents to the office for a physical exam. Interim history: Went to [facility], copay became cost prohibative. Wearing braces occasionally during activities, has not consistently worn at night Colonoscopy postponed, would prefer cologuard Current concerns: Htn- taking medications, has home bp cuff, readings at home elevated Only taking one pill, but will start both Insomnia- does not sleep well right now, is taking buproprion which finds helpful and would like tocontinue Snoring, no apnea Patient Active Problem List Diagnosis HTN (hypertension) [...] screening Screening for colon cancer Eczema Snoring Past Surgical History: Procedure Laterality Date SECTION, LOW TRANSVERSE TUBAL LIGATION Family History Problem Relation Name Age of Onset Hypertension Mother Diabetes type II Mother Heart attack Mother's Brother Heart attack Maternal Grandfather Heart attack Paternal Grandfather Social History Living situation: with spouse Employment/Education: Diet/exercise: skips breakfast, Substance use: -alcohol sometimes -tobacco -opioids no concerns Sexual activity: less post menopause Contraception: Mental health: Patient Health Questionnaire-9 Score: 15 (01/17/2024 12:05 PM) Patient Health Questionnaire-2 Score: 2 (01/17/2024 12:05 PM) Thoughts that you would be better off or hurting yourself in some way: Not at all (01/17/2024 12:05 PM) DEBI-7 Total Score: 21 (01/17/2024 12:06 PM) No LMP recorded. Allergies Allergen Reactions Acetaminophen Nausea And Vomiting and Other Oxycodone Other Percocet [Oxycodone-Acetaminophen] Review of Systems Constitutional: Negative for activity change and appetite change. Respiratory: Positive for chest tightness. Negative for cough and wheezing. During anxiety, gets chest tightness Cardiovascular: Negative for palpitations and leg swelling. Gastrointestinal: Positive for constipation. Genitourinary: Negative for difficulty urinating and dyspareunia. Musculoskeletal: Positive for arthralgias. Skin: Positive for rash. Resolving Psychiatric/Behavioral: The patient is nervous/anxious. Vitals: 06/20/24 1255 BP: (!) 155/85 BP Location: Right arm Patient Position: Sitting BP Cuff Size: Adult Pulse: 60 Resp: 20 Temp: 96.9 ??F (36.1 ??C) TempSrc: Temporal SpO2: 98% Weight: 163 lb 6.4 oz (74.1 kg) Height: 5' 2 (1.575 m) Physical Exam Constitutional: General: She is not in acute distress. Appearance: Normal appearance. She is obese. HENT: Head: Normocephalic and atraumatic. Right Ear: Tympanic membrane normal. Left Ear: Tympanic membrane normal. Nose: Nose normal. Mouth/Throat: Mouth: Mucous membranes are moist. Eyes: Extraocular Movements: Extraocular movements intact. Conjunctiva/sclera: Conjunctivae normal. Cardiovascular: Rate and Rhythm: Normal rate and regular rhythm. Heart sounds: Normal heart sounds. Pulmonary: Effort: Pulmonary effort is normal. Breath sounds: Normal breath sounds. Abdominal: General: Abdomen is flat. Bowel sounds are normal. Palpations: Abdomen is soft. Musculoskeletal: General: Normal range of motion. Cervical back: Normal range of motion and neck supple. Skin: General: Skin is warm and dry. Findings: Rash present. Comments: Excoriation and erythema on dorsal aspect of hand Neurological: General: No focal deficit present. Mental Status: She is alert and oriented to person, place, and time. Psychiatric: Mood and Affect: Mood normal. Behavior: Behavior normal. 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) Current Assessment & Plan Reduce buproprion to 100 mg SR due to insomnia with 150 mg XR Return to clinic in 4 weeks sooner prn Dietary counseling Current Assessment & Plan Encouraged minimizing processed foods and increasing whole foods particularly vegetables Exercise counseling Current Assessment & Plan Encouraged daily movement, working up to 30 minutes daily Acute carpal tunnel syndrome of right wrist Current Assessment & Plan Trial nocturnal bracing Health care maintenance Current Assessment & Plan Pap scheduled Colonoscopy and cardiovascular labs ordered Utd on mammogram Anticipatory guidance reviewed Relevant Orders Comprehensive Metabolic Panel Hemoglobin A1c (Completed) Lipid Panel, Standard Depression Relevant Medications buPROPion SR (Wellbutrin SR) 100 MG 12 hr tablet Colon cancer screening Relevant Orders Cologuard?? colon cancer screening Screening for colon cancer Relevant Orders Cologuard?? 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 femalehypertension Lab Review: orders written for new lab studies as appropriate; see orders Routine Cancer Screening Breast CA: 06/19/24 Cervical CA: due Colon CA: 06/13, 5 year recall Lung CA: Current Outpatient Medications Medication Sig Dispense Refill amLODIPine (Norvasc) 10 MG tablet Take 1 tablet (10 mg) by mouth Once per day. 30 tablet 11 buPROPion SR (Wellbutrin SR) 100 MG 12 hr tablet Take 1 tablet (100 mg) by mouth Once per day. Do not crush, chew, or split. 30 tablet 2 Diclofenac Sodium 1 % gel Apply 2 g topically if needed in the morning, at noon, in the evening, and at bedtime (pain). 150 g 3 lisinopril (Prinivil) 10 MG tablet Take 1 tablet (10 mg) by mouth Once per day. 30 tablet 11 triamcinolone (Kenalog) 0.1 % cream Apply topically if needed in the morning and at bedtime (pain and swelling). 30 g 2 No current facility-administered medications for this visit. Immunization History Administered Date(s) Administered Hep B, adult 10/03/2021 Influenza, IIV3, injectable 03/16/2013 MMR 10/03/2021 Moderna Covid-19 Vaccine 12+ 09/11/2020, 10/09/2020, 10/01/2021 Tdap 10/13/2011, 11/25/2018 documented in this encounter Miscellaneous Notes * Assessment & Plan Note - Valentine Lagunas NP - 06/20/2024 4:38 PM ESTAssociated Problem(s): Chronic kidney disease, stage 2 (mild) Labs as ordered below * Assessment & Plan Note - Valentine Lagunas NP - 06/20/2024 4:37 PM ESTAssociated Problem(s): Acute carpal tunnel syndrome of right wrist Trial nocturnal bracing * Assessment & Plan Note - Valentine [...] Problem(s): Eczema 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 COLON CANCER SCREEN Routine 06/26/2024 7:37 AM EST Colon cancer screening Screening for colon cancer HEMOGLOBIN A1C Routine 06/20/2024 2:07 PM EST Health care maintenance LIPID PANEL, STANDARD Routine 06/20/2024 2:07 PM EST Health care maintenance COMPREHENSIVE METABOLIC PANEL Routine 06/20/2024 2:07 PM EST Health care maintenance documented in this encounter Results * Cologuard?? colon cancer screening (06/26/2024 7:37 AM EST) Cologuard Result Negative Negative 06/30/19 25 7:20 PM EST [facility] (CLIA #:[id number]) Comment: NEGATIVE TEST RESULT. A negative Cologuard result indicates a low likelihood that a colorectal cancer (CRC) or advanced adenoma (adenomatous polyps with more advanced pre-malignant features) ??is present. The chance that a person with a negative Cologuard test has a colorectal cancer is less than 1 in 1500 (negative predictive value >99.9%) or has an ??advanced adenoma is less than ??5.3% (negative predictive value 94.7%). These data are based on a prospective cross-sectional study of 10,000 individuals at average risk for colorectal cancer who were screened with both Cologuard and colonoscopy. (Nader Pineda al, N Engl J Med 2014;370(14):1286- 1297) The normal value (reference range) for this assay is negative. COLOGUARD RE-SCREENING RECOMMENDATION: Periodic colorectal cancer screening is an important part of preventive healthcare for asymptomatic individuals at average risk for colorectal cancer. ??Following a negative Cologuard result, the [place] [employer] and U.S. Multi-Society Task Force screening guidelines recommend a Cologuard re-screening interval of 3 years. References: [place] [employer] Guideline for Colorectal Cancer Screening: https://www.cancer.org/cancer/exnww-vpelaa-jxjkvl/hbdfrbceu-blftsorrw-tsqvxqt/ac s-rec ommendations.html.; Jacob DK, Kera CR, Nini PastorK, Colorectal Cancer Screening: Recommendations for Physicians and Patients from the U.S. Multi-Society Task Force on Colorectal Cancer Screening , Am J Gastroenterology 2017; 112:8799-5353. TEST DESCRIPTION: Composite algorithmic analysis of stool DNA-biomarkers with hemoglobin immunoassay. ?? Quantitative values of individual biomarkers are not reportable and are not associated with individual biomarker result reference ranges. Cologuard is intended for colorectal cancer screening of adults of either sex, 45 years or older, who are at average-risk for colorectal cancer (CRC). Cologuard has been approved for use by the U.S. FDA. The performance of Cologuard was established in a cross sectional study of average-risk adults aged 50-84. Cologuard performance in patients ages 45 to 49 years was estimated by sub-group analysis of near-age groups. Colonoscopies performed for a positive result may find as the most clinically significant lesion: colorectal cancer [4.0%], advanced adenoma (including sessile serrated polyps greater than or equal to 1cm diameter) [20%] or non- advanced adenoma [31%]; or no colorectal neoplasia [45%]. These estimates are derived from a prospective cross-sectional screening study of 10,000 individuals at average risk for colorectal cancer who were screened with both Cologuard and colonoscopy. (Nader Pineda al, N Engl J Med 2014;370(14):3569-0030.) Cologuard may produce a false negative or false positive result (no colorectal cancer or precancerous polyp present at colonoscopy follow up). A negative Cologuard test result does not guarantee the absence of CRC or advanced adenoma (pre-cancer). The current Cologuard screening interval is every 3 years. ([place] [employer] and U.S. Multi-Society Task Force). Cologuard performance data in a 10,000 patient pivotal study using colonoscopy as the reference method can be accessed at the following location: www.[employer]/results. Additional description of the Cologuard test process, warnings and precautions can be found at [email or web address] [email or web address]. Stool specimen (specimen) 06/26/2024 7:37 AM EST 06/27/2024 8:42 AM EST Valentine Lagunas NP LAB MOLECULAR DIAGNOSTICS TARASA JAYJAY Final Result [facility] (CLIA #:[id number]) [address] [place] [address], * (ABNORMAL) Lipid Panel, Standard (06/20/2024 2:07 PM EST) Triglycerides 113 <150 mg/dL [facility] Comment:Desirable Triglyceri de: less than 150 mg/dLBorderline High Triglyceride 150-199 mg/dLHigh Triglyceride: 200-499 mg/dLVery High Triglyceride: greater than or equal to 5OO mg/dL Cholesterol 181 <200 mg/dL [facility] Comment:Desirable Cholestero l: less than 200 mg/dLBorderline High Cholesterol: 200-239 mg/dLHigh Cholesterol: greater than 239 mg/dL LDL Cholesterol Calculated 109(H) <100 mg/dL [facility] Comment:Desirable LDL: less than 100 mg/dLNear Optimal/Above Optimal LDL: 110- 129 mg/dLBorderline High LDL: 130-159 mg/dLHigh LDL: 160-189 mg/dLVery High LDL: greater than or equal to 190 mg/dL HDL Cholesterol 50 >40 mg/dL [facility] Comment:Desirable HDL: great er than 40 mg/dL Note: This HDL assay may give artificially low results in patients with liver disease. Blood Venous blood specimen / Unknown 06/20/2024 2:07 PM EST 06/20/2024 4:06 PM EST us Valentine Lagunas RELAY TESTER HELPER LAB BLOOD ORDERABLES Final Resul t [facility] [address] [place] [phone] * Hemoglobin A1c (06/20/2024 2:07 PM EST) Hemoglobin A1c 4.9 <6.0 % [facility] Comment:Hemoglobin A1C Refer ence Range Adults: 4.8 - 6.0 % Non diabetic: < 6.0 % Goal: < 7.0 %Additional Action Suggested: > 8.0 %Note: Hemoglobin A1c results are invalid for patients with abnormal amounts of HbF. Blood transfusions may impact the HbA1c concentration in the patient sample. Estimated Average Glucose 94 mg/dL [facility] Comment:eAG = Estimated ave rage glucose which is %A1C expressed asaverage glucose, using the formula of the T3Y-OsnfhtaJcrflpa Glucose study (ADAG), Diabetes Care, Vol.31,#8,Dec. 2007 Blood Venous blood specimen / Unknown 06/20/2024 2:07 PM EST 06/20/2024 4:06 PM EST us Valentine Lagunas RELAY TESTER HELPER LAB BLOOD ORDERABLES Final Resul t Performing Organization Address City/[facility]/ZIP Co de Phone Number [facility] [address] [place], [place] [phone] * (ABNORMAL) Comprehensive Metabolic Panel (06/20/2024 2:07 PM EST) Sodium 141 135 - 145 mmol/L [facility] Potassium 3.7 3.3 - 5.1 mmol/L [facility] Chloride 107 96 - 108 mmol/L [facility] Carbon Dioxide 27 22 - 29 mmol/L [facility] Anion Gap 11(L) 12 - 20 [facility] Urea Nitrogen (BUN) 14 9 - 16 mg/dL [facility] Creatinine, Serum 0.72 0.5 - 1.4 mg/dL [facility] Estimated Glomerular Filt Rate >60 [facility] Comment:Chronic Kidney Disea se: Estimated GFR < 60 mL/min/1.80b1Fbfvtb Kidney Disease: Estimated GFR < 15 mL/min/1.73m2 Glucose 88 60 - 115 mg/dL [facility] Calcium 8.8 8.4 - 10.2 mg/dL [facility] Bilirubin, Total 0.6 0.0 - 1.0 mg/dL [facility] Aspartate Amino Transferase 19 5 - 31 U/L [facility] Alanine Aminotransferase 18 0 - 31 U/L [facility] Total Protein 7.4 6.5 - 8.0 g/dL [facility] Albumin Level 4.2 3.5 - 5.0 g/dL [facility] Alkaline Phosphatase 100 39 - 117 U/L [facility] Blood Venous blood specimen / Unknown 06/20/2024 2:07 PM EST 06/20/2024 4:06 PM EST us Valentine Lagunas RELAY TESTER HELPER LAB BLOOD ORDERABLES Final Resul t Performing Organization Address City/[facility]/ZIP Co de Phone Number [facility] [address] [place] [phone] documented in this encounter Visit Diagnoses Diagnosis Hypertension, unspecified [...] counseling Snoring Other dyspnea and respiratory abnormality Acute carpal tunnel syndrome of right wrist Chronic kidney disease, stage 2 (mild) documented in this encounter Additional Health Concerns Assessment Noted Time PHQ-9 Depression Total Score: 15 024 12:05 PM EDT documented as of this encounter Care Teams Spinneret Cleaner Relationship Specialty Start Date End Date Valentine Lagunas NP [address] [place] [address] PCP - General Family Medicine 11/18/23 documented as of this encounter
--- OUTSIDE RECORDS SUMMARY | 2024-07-18 20:04 | XMS_ITS | Encounter Summary ---
Author Organization [facility] Address [address] [place] [address] Care Team Providers Care Retail Merchandiser Technician Name Role Phone Victoria Montanez MD Primary Care Provider Unava ilable Abby Cat MD Primary Care Provider Yoselin vailable Victoria Montanez MD Primary Care Provider Unava ilable [facility] Primary Care Provider Victoria Mena MD Primary Care Provider Unava ilable Anselmo Dorantes MD Primary Care Provider Victoria Mena MD Primary Care Provider Unava ilable Casey Blunt MD Primary Care Provider [phone] Encounter Details Date Type Department Care Team Description 10/27/2010 Night Triage Doc Medical Records [address] [place] [address] Abstract, Provider Social History Tobacco Use Types [...] on filedocumented in this encounter Care Teams Retail Merchandiser Technician Relationship Specialty Start Date End Date Victoria Montanez MD PCP - General 04/10/10 11/11/15 Abby Cat MD PCP - General Internal Medicine 11/12/15 06/24/17 Victoria Montanez MD PCP - General Internal Medicine 06/25/17 10/05/17 [facility], Pcp PCP - General Internal Medicine 10/06/17 10/20/17 Victoria Montanez MD PCP - General Internal Medicine 10/21/17 06/15/19 Jayna, MD Anselmo PCP - General Internal Medicine 06/16/19 06/10/20 Victoria Montanez MD PCP - General Internal Medicine 06/11/20 03/11/21 Casey Blunt MD [address] [place] [phone] PCP - General Internal Medicine 03/12/21 documented as of this encounter
--- OUTSIDE RECORDS SUMMARY | 2024-07-18 20:04 | XMS_ITS | Clinical Summary ---
Author Organization [employer] Address [address] [facility] [address] [place] [address] Care Team Providers Care Finishing Operator Name Role Phone Valentine Lagunas ESSIE Primary Care Provider [phone] Allergies Active Allergy Reactions Criticality Noted Date [...] Active Problems Problem Noted Date Diagnosed Date Pap smear for cervical cancer screening 07/18/19 Weight gain 07/18/2024 Assessment & Plan (07/18/2024 1:35 PM EST): Reviewed healthy habits particularly those that support stable wt post menopause Vaginal discharge 07/18/2024 Assessment & Plan (07/18/2024 1:34 PM EST): Reassuring exam today Bv panel and sti panel Depression 06/20/2024 Colon cancer screening 06/20/2024 Screening for colon cancer 06/20/2024 Eczema 06/20/2024 Assessment & Plan (06/20/2024 1:32 PM EST): 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 Trial steroid cream Snoring [...] of right wrist 03/25 Assessment & Plan (06/20/2024 4:37 PM EST): Trial nocturnal bracing Assessment & Plan (04/18/2024 7:51 PM EST): [...] today HTN (hypertension) 02/03/2023 Assessment & Plan (07/18/2024 1:34 PM EST): Above goal Pt will measure bp at home Assessment & Plan (06/20/2024 1:32 PM EST): [...] regimen Chronic kidney disease, stage 2 (mild) Assessment & Plan (06/20/2024 4:38 PM EST): Labs as ordered below Gastroesophageal reflux disease 10/28/2018 Posttraumatic stress disorder [...] Encounters Date Type Department Care Team Description 07/18/2024 1:00 PM EST Procedure Visit [address] [address] Valentine Lagunas NP Pap smear for cervical cancer screening (Primary Dx); Weight gain; Hypertension, unspecified type; Vaginal discharge 07/18/2024 Travel 07/11/[address] [address] Rosi Cannon MA Chart Prep 06/20/2024 1:00 PM EST Office Visit [facility] [address] [place] [phone] Valentine Lagunas NP Hypertension, unspecified type (Primary Dx); Health care maintenance; Depression, unspecified depression type; Colon cancer screening; Screening for colon cancer; Eczema, unspecified type; 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); Dietary counseling; Exercise counseling; Snoring; Acute carpal tunnel syndrome of right wrist; Chronic kidney disease, stage 2 (mild) 06/08/2024 Patient Outreach [facility] [address] [place] [phone] Valentine Lagunas NP Pre-visit Planning (SDOH screening negative and tobacco screening negative) 06/07/[address] [address] Rosi Cannon MA Chart Prep 05/22/[address] [address] Valentine Lagunas NP No Show 05/19/[address] [place] [address] Rosi Cannon MA Chart Prep 04/18/2024 11:00 AM EST Office Visit [address] [place] [address] Valentine Lagunas NP Hypertension, unspecified type (Primary Dx); DEBI (generalized anxiety disorder); Posttraumatic stress disorder; Acute carpal tunnel syndrome of right wrist 04/18/2024 Travel 04/17/[address] [address] Rosi Cannon MA Chart Prep from Last 3 Months Immunizations Name Administration [...] Mass Index 30.03 07/18/2024 1:04 PM EST Plan of Treatment Upcoming Encounters Date Type Department Care Team (Late st Contact Info) Description 08/08/2024 1:30 PM EDT Office Visit [facility] [address] [place] [address] Valentine Lagunas NP [address] [place] [address] Health Maintenance Due Date Last Done Comments CT Colonography 1972 FIT 1972 FOBT 1972 HIV Screening 1970 Sigmoidoscopy 1972 Family Planning (PISQ) 1987 Hepatitis C Screening 1990 Hepatitis B Vaccines (2 of 3 - 19+ 3-dose series) 10/31/2021 10/03/2021 Pneumococcal Vaccine: 50+ Years (1 of 1 - PCV) 2022 Zoster Vaccines (1 of 2) 2022 Cervical Cancer Screening 06/16/2023 HPV/Cotest 06/16/2023 06/16/2018, 06/16/2018 Pap Smear 06/16/2023 06/16/2018 COVID-19 Vaccine ( season) 2024 10/01/2021, 10/09/2020, 09/11/2020 Influenza Vaccine (#1) 2024 03/16/2013 Depression Monitoring (PHQ-9) 07/19/2024 01/17/2024, 01/17/2024 Depression Screening 01/16/2025 01/17/2024, 01/17/20 Alcohol/Substance Use Screening 04/18/2025 04/18/2024 SDOH Screening 06/08/2025 06/08/2024 Colonoscopy 06/19/2025 06/19/2020 Colorectal Cancer Screening 06/19/2025 Tobacco Screening 07/18/2025 07/18/2024 Mammogram 11/23/2025 11/24/2023, 03/0 06/2021, 07/05/2020, Additional history exists FIT DNA/Cologuard 06/26/2027 06/26/2024 DTaP/Tdap/Td Vaccines (3 - Td or Tdap) 11/25/2028 11/25/2018, 10/13/2011 Lipid Panel 06/20/2029 06/20/2024, 08/2 10/2023, 10/23/2021 RSV Patients and Patients Aged 60 [...] Colon cancer screening Screening for colon cancer LIPID PANEL, STANDARD Routine 06/20/2024 2:07 PM EST Health care maintenance HEMOGLOBIN A1C Routine 06/20/2024 2:07 PM EST Health care maintenance COMPREHENSIVE METABOLIC PANEL Routine 06/20/2024 2:07 PM EST Health care maintenance CBC WITH AUTO DIFFERENTIAL Routine 06/20/2024 2:07 PM EST Fever, unspecified fever cause BI MAMMOGRAM SCREENING TOMOSYNTHESIS BILATERAL Routine 11/24/2023 9:51 AM EDT HM COLONOSCOPY Routine 06/19/2020 10:19 AM EST [facility]ZZ HISTORICAL HPV MRNA E6/E7 Routine 06/16/2018 9:10 AM EST HM PAP/HPV Routine 06/16/2018 from Last 3 Months or Most Recently Relevant to Health Maintenance Results * Cologuard?? colon cancer screening (06/26/2024 7:37 AM EST) Cologuard Result Negative Negative 06/30/19 7:20 PM EST [facility] (CLIA #:[id number]) Comment: NEGATIVE TEST RESULT. A negative Cologuard [...] screened with both Cologuard and colonoscopy. (Nader Justin et al, N Engl J Med 2014;370(14):1286- 1297) The normal value (reference range) for this assay is negative. COLOGUARD RE-SCREENING RECOMMENDATION: Periodic colorectal cancer screening is an important part of preventive healthcare for asymptomatic individuals at average risk for colorectal cancer. ??Following a negative Cologuard result, the [place] [employer] Society and U.S. Multi-Society Task Force screening guidelines recommend a Cologuard re-screening interval of 3 years. References: [place] [employer] Guideline for Colorectal Cancer Screening: https://www.cancer.org/cancer/vqlbl-hggdkd-gtbzln/adnmffniq-myjnwikvl-ygdszum/ac s-rec ommendations.html.; Jacob CHURCHILL, Kera BLAKE, Nini PastorK, Colorectal Cancer Screening: Recommendations for Physicians and Patients from the U.S. Multi-Society Task Force on Colorectal Cancer Screening , Am J Gastroenterology 2017; 112:0895-4315. TEST DESCRIPTION: Composite algorithmic analysis of stool [...] screened with both Cologuard and colonoscopy. (Nader Justin et al, N Engl J Med 2014;370(14):1839-4332.) Cologuard may produce a false negative or false positive result (no colorectal cancer or precancerous polyp present at colonoscopy follow up). A negative Cologuard test result does not guarantee the absence of CRC or advanced adenoma (pre-cancer). The current Cologuard screening interval is every 3 years. ([place] [employer] and U.S. Multi-Society Task Force). Cologuard performance data in a 10,000 patient pivotal study using colonoscopy as the reference method can be accessed at the following location: www.Venuu/results. Additional description of the Cologuard test process, warnings and precautions can be found at www.Cadentrd.com. Stool specimen (specimen) 06/26/2024 7:37 AM EST 06/27/2024 8:42 AM EST Valentine Lagunas NP LAB MOLECULAR DIAGNOSTICS ORDERA BLES Final Result [facility] (CLIA #:[id number]) [address] [place] [address], * (ABNORMAL) CBC auto differential (06/20/2024 2:07 PM EST) White Blood Count 5.6 4.8 - 10.8 X10*3/uL [facility] Red Blood Count 4.75 4.20 - 5.50 X10*6/uL [facility] Hemoglobin 14.9 12.0 - 16.0 g/dl [facility] Hematocrit 42.1 37.0 - 47.0 % [facility] Mean Corpuscular Volume 88.6 80.0 - 98.0 fL [facility] Mean Corpuscular Hemoglobin 31.4 27.0 - 33.0 pg [facility] Mean Corpuscular HGB Conc 35.4(H) 31.0 - 35.0 g/dl [facility] Red Cell Distribution Width 13.1 11.0 - 16.0 % [facility] Platelet Count 257 160 - 400 X10*3/uL [facility] Mean Platelet Volume 12.4(H) 9.4 - 12.3 fL [facility] Neutrophils Percent Auto 53.5 45 - 73 % [facility] Imm Gran Pct Auto 0.4 0.0 - 0.4 % [facility] Lymphocytes Percent Auto 32.4 20 - 40 % [facility] Monocytes Percent Auto 8.8 2 - 11 % [facility] Eosinophils Percent Auto 3.8 0 - 4 % [facility] Basophils Percent Auto 1.1 0 - 2 % [facility] NRBC Pct Auto 0.0 0.0 - 0.2 /100WBC [facility] Neutrophils Absolute Auto 3.0 2.0 - 8.3 x10*3/uL [facility] Imm Gran Abs Auto 0.02 0.00 - 0.03 X10*3/uL [facility] Lymphocytes Absolute Auto 1.8 1.2 - 4.9 X10*3/uL [facility] Monocytes Absolute Auto 0.5 0.1 - 1.2 X10*3/uL [facility] Eosinophils Absolute Auto 0.2 0.0 - 0.4 X10*3/uL [facility] Basophils Absolute Auto 0.1 0.0 - 0.2 X10*3/uL [facility] NRBC Abs Auto 0.000 0.0 - 0.012 X10*3/uL [facility] Blood Venous blood specimen / Unknown 06/20/2024 2:07 PM EST 06/20/2024 4:06 PM EST us Valentine Lagunas TELECOMMUNICATIONS REPAIRER LAB BLOOD ORDERABLES Final Resul t Performing Organization Address [facility] Co de Phone Number [facility] [address] [place] [phone] * Hemoglobin A1c (06/20/2024 2:07 PM EST) Hemoglobin A1c 4.9 <6.0 % [facility] Comment:Hemoglobin A1C Refer ence Range Adults: 4.8 - 6.0 % Non diabetic: < 6.0 % Goal: < 7.0 %Additional Action Suggested: > 8.0 %Note: Hemoglobin A1c results are invalid for patients with abnormal amounts of HbF. Blood transfusions may impact the HbA1c concentration in the patient sample. Estimated Average Glucose 94 mg/dL [facility] Comment:eAG = Estimated ave rage glucose which is %A1C expressed asaverage glucose, using the formula of the X2E-SdokuimJwdqewj Glucose study (ADAG), Diabetes Care, Vol.31,#8,Dec. 2007 Blood Venous blood specimen / Unknown 06/20/2024 2:07 PM EST 06/20/2024 4:06 PM EST us Valentine Lagunas NP LAB BLOOD ORDERABLES Final Resul t Performing Organization Address [facility] Co de Phone Number [facility] [address] [place] [phone] * (ABNORMAL) Lipid Panel, Standard (06/20/2024 2:07 PM EST) Triglycerides 113 <150 mg/dL [facility] Comment:Desirable Triglyceri de: less than 150 mg/dLBorderline High Triglyceride 150-199 mg/dLHigh Triglyceride: 200-499 mg/dLVery High Triglyceride: greater than or equal to 5OO mg/dL Cholesterol 181 <200 mg/dL [facility] Comment:Desirable Cholestero l: less than 200 mg/dLBorderline High Cholesterol: 200-239 mg/dLHigh Cholesterol: greater than 239 mg/dL LDL Cholesterol Calculated 109(H) <100 mg/dL [facility] Comment:Desirable LDL: less than 100 mg/dLNear Optimal/Above Optimal LDL: 110- 129 mg/dLBorderline High LDL: 130-159 mg/dLHigh LDL: 160-189 mg/dLVery High LDL: greater than or equal to 190 mg/dL HDL Cholesterol 50 >40 mg/dL [facility] Comment:Desirable HDL: great er than 40 mg/dL Note: This HDL assay may give artificially low results in patients with liver disease. Blood Venous blood specimen / Unknown 06/20/2024 2:07 PM EST 06/20/2024 4:06 PM EST us Valentine Lagunas NP LAB BLOOD ORDERABLES Final Resul t [facility] [address] [place] [address] [phone] * (ABNORMAL) Comprehensive Metabolic Panel (06/20/2024 2:07 PM EST) Sodium 141 135 - 145 mmol/L [facility] Potassium 3.7 3.3 - 5.1 mmol/L [facility] Chloride 107 96 - 108 mmol/L [facility] Carbon Dioxide 27 22 - 29 mmol/L [facility] Anion Gap 11(L) 12 - 20 [facility] Urea Nitrogen (BUN) 14 9 - 16 mg/dL [facility] Creatinine, Serum 0.72 0.5 - 1.4 mg/dL [facility] Estimated Glomerular Filt Rate >60 [facility] Comment:Chronic Kidney Disea se: Estimated GFR < 60 mL/min/1.49g2Cpgvys Kidney Disease: Estimated GFR < 15 mL/min/1.73m2 Glucose 88 60 - 115 mg/dL [facility] Calcium 8.8 8.4 - 10.2 mg/dL [facility] Bilirubin, Total 0.6 0.0 - 1.0 mg/dL [facility] Aspartate Amino Transferase 19 5 - 31 U/L [facility] Alanine Aminotransferase 18 0 - 31 U/L [facility] Total Protein 7.4 6.5 - 8.0 g/dL [facility] Albumin Level 4.2 3.5 - 5.0 g/dL [facility] Alkaline Phosphatase 100 39 - 117 U/L [facility] Blood Venous blood specimen / Unknown 06/20/2024 2:07 PM EST 06/20/2024 4:06 PM EST us Valentine Lagunas TELECOMMUNICATIONS REPAIRER LAB BLOOD ORDERABLES Final Resul t [facility] [address] [facility] [place] [address] [phone] * BI Mammogram Screening Tomosynthesis Bilateral (11/24/2023 9:51 AM EDT) Anatomical Region Laterality Modality Breast Bilateral Mammography 11/24/2023 9:51 AM EDT Narrative 12/22/2023 7:15 AM EDT ? [facility] [place] ? [address] ?[place] [address] ? Mammography Report ? Signed ? Patient: Haydee,Paulina ?MR#: [id number] ?? [id number] ? : 1970 ?Acct:[id number] ? Age/Sex: 53 / F ?ADM Date: 11/23/ ? Loc: HO.MAMMO ? Attending Dr: Casey Blunt MD ? Ordering Physician: Casey Blunt MD ?Results: 1Negative ? Date of Service: 11/24/23 ?Follow Up: 1 Year From Orig ?? inal Mammogram ? Procedure(s): MM tomosynthesis screening BI ?? Accession Number(s): [id number] ? cc: Kate Mccracken DO; Casey Blunt [...] by Liss Emmanuel MD in OV> ? 12/22/23 0711 ? DD/ 0951 ? TD/TT: ? Receiving Associate: ? Procedure Note [place], Image - 12/22/2023 [facility] [address] [place] [address] Dr. [place], [place] [address] Mammography Report Signed Patient: Moses Hubbard#: [id number] : 1970Acct:[id number] Age/Sex: 53 / FADM Date: 11/24/23 Loc: SHILA Attending Dr: Casey lBunt MD Ordering Physician: Casey Blunt MDResults: 1Negative Date of Service: 11/24/23Follow Up: 1 Year From Orig inal Mammogram Procedure(s): MM tomosynthesis screening BI Accession Number(s): [id number] cc: Kate Mccracken DO; Casey Blunt MD [...] signed by Liss Emmanuel MD in OV> 12/22/23 0711 DD/ 0951 TD/TT: Receiving Associate: [facility] External Provider IMG BI PROCEDURES Edited Result - Final * Hm Colonoscopy (06/19/2020 10:19 AM EST) Colonoscopy Normal Normal Narrative Petrona Mccarthy - 06/19/2020 10:19 AM EST Recommended 5 year follow up Historical Provider HEALTH MAINTENANCE Edited Result - Final * HPV mRNA E6/E7 (06/16/2018 9:10 AM EST) HPV mRNA E6/E7 Not Detected NOT DETECTED [facility] Comment: This test was performed using the APTIMA(R) HPV Assay ([employer] This assay detects E6/E7 viral messenger RNA (mRNA) from 14 high-risk HPV types (16,18,31,33,35,39,45,51, 52,56,58,59,66,68). For additional information please refer to: http://education.blinkbox/faq/JPN823s6 (This link is being provided for informational/ educational purposes only.) The analytical performance characteristics of this assay have been determined by [employer] [place], [place]. The modifications have not been cleared or approved by the FDA. This assay has been validated pursuant to the CLIA regulations and is used for clinical purposes. Test Performed by [facility], [employer] [facility], [address] [place] [address] Brendon Smith M.D., Ph.D., Director of Laboratories , CLIA [id number] Please note: ??Effective 02/03/2016, HPV testing will be performed using [employer]'s APTIMA test which targets mRNA. Detecting mRNA instead of DNA, as in older methods, offers significant improvements in specificity. 06/16/2018 9:10 AM EST Zaina Saba CNM HISTORICAL/NON ORDERABLE LABS Final Result [facility] [address] * Pap Smear (06/16/2018) Pap Negative for intraephithelial lesion or malignancy Negative for intraephithelial lesion or malignancy, Other HPV Undetected 06/16/2018 Historical Provider MD HEALTH MAINTENANCE Final Result from Last 3 Months or Most Recently Relevant to Health Maintenance Insurance [facility] [address] [address], [place] Care Teams Finishing Operator Relationship Specialty Start Date End Date Valentine Lagunas NP [address] [place] [address] PCP - General Family Medicine 11/18/23
--- OUTSIDE RECORDS SUMMARY | 2024-07-18 20:04 | XMS_ITS | Encounter Summary ---
Author Organization [facility] Address [address] [place] [address] Care Team Providers Care Tube Coverer Name Role Phone Victoria Montanez MD Primary Care Provider Unava ilable Abby Cat MD Primary Care Provider Yoselin vailable Victoria Montanez MD Primary Care Provider Unava ilable [facility] Primary Care Provider Victoria Mena MD Primary Care Provider Unava ilable Anselmo Dorantes MD Primary Care Provider Victoria Mena MD Primary Care Provider Unava ilable Casey Blunt MD Primary Care Provider [phone] Encounter Details Date Type Department Care Team Description 06/22/2011 Placement Interviewer Report Medical Records [address] [place] [phone] Lance Alonso Social History Tobacco Use Types [...] on filedocumented in this encounter Care Teams Tube Coverer Relationship Specialty Start Date End Date Victoria Montanez MD PCP - General 04/10/10 11/11/15 Abby Cat MD PCP - General Internal Medicine 11/12/15 06/24/17 Victoria Montanez MD PCP - General Internal Medicine 06/25/17 10/05/17 Replaced By [facility], Pcp PCP - General Internal Medicine 10/06/17 10/20/17 Victoria Montanez MD PCP - General Internal Medicine 10/21/17 06/15/19 Jayna, MD Anselmo PCP - General Internal Medicine 06/16/19 06/10/20 Victoria Montanez MD PCP - General Internal Medicine 06/11/20 03/11/21 Casey Blunt MD [address] [place] [id number] PCP - General Internal Medicine 03/12/21 documented as of this encounter
[2024-07-19 13:50] LABS: Bacterial Vaginosis PCR NEGATIVE (Negative); Candida Group PCR NOT DETECTED (Not Detect); Candida glab krusei PCR NOT DETECTED (Not Detect); Trichomonas vaginalis PCR NOT DETECTED (Not Detect)
[2024-07-20 14:13] LABS: C. trachomatis RNA TMA NOT DETECTED (NOT DETECTED); N. gonorrhoeae RNA TMA NOT DETECTED (NOT DETECTED)
[2024-07-25 11:00] LABS: HPV Genotype 16 Negative (Negative); HPV Genotype 18 Negative (Negative); HPV High Risk Negative (Negative)
[2024-07-28 13:08] LABS: Trichomonas (NAAT) NOT DETECTED
== END 2024-07-18 18:10 | disposition home or self-care (01) ==
LOC: HO.HHCLNP 18:09
PROVIDERS: Visit Provider Nurse Practitioner Family
DX: Z12.4 Encounter for screening for malignant neoplasm of cervix (principal); N89.8 Other specified noninflammatory disorders of vagina; Z11.51 Encounter for screening for human papillomavirus (HPV)
CPT/HCPCS: 81515; 87491; 87591; 87626; 87661; 88175

== ENCOUNTER 2024-11-10 15:57 | Outpatient (REF) | payer BC, SELFPAY ==
--- OUTSIDE RECORDS SUMMARY | 2024-11-10 15:59 | XMS_ITS | Clinical Summary ---
Author Organization [facility] Address [address] [place] [address] Care Team Providers Care Cello Teacher Name Role Phone Casey Blunt MD Primary Care Provider [phone] Allergies Active Allergy Reactions Severity Noted Date [...] 60 03/31/2021 3:00 PM EST Temperature 36.8 C (98.2 F) 03/31/2021 3:00 PM EST Respiratory Rate 17 03/31/2021 3:00 PM EST [...] 40-64 07/24/202207/24, 04/10/2014, 03/16/2013, Additional history exists BMI CHECK/ADVISE 05/24/2024 07/24/2020, 07/2020 (Completed), 06/19/2019, Additional history exists MAMMOGRAM 11/23/2024 11/24/2023, 05/2020 (External Completion), 10/08/2014, Additional history exists INFLUENZA (Season Ended) 2025 021 (Refused), 03/16/2013 CHOLESTEROL SCREENING 07/24/2025 07/24/2020 , 08/06/2017, 06/29/2014, Additional history exists DTAP/TDAP/TD (3 - Td or Tdap) 11/25/2028 11/25/2018, 10/13/2011 PNEUMOCOCCAL VACCINE FOR HIG H RISK PATIENTS (#1) 2037 Care Teams Cello Teacher Relationship Specialty Start Date End Date Casey Blunt MD [address] [place] [phone] PCP - General Internal Medicine 03/12/21
[2024-11-10 17:30] LABS: MANUAL DIFF FLAG NO
[2024-11-10 17:37] LABS: Basophils Absolute Auto 0.1 X10*3/uL (0.0-0.2); Basophils Percent Auto 1.2 % (0-2); Eosinophils Absolute Auto 0.2 X10*3/uL (0.0-0.4); Eosinophils Percent Auto 2.8 % (0-4); Hematocrit 41.9 % (37.0-47.0); Hemoglobin 14.4 g/dl (12.0-16.0); Imm Gran Abs Auto 0.02 X10*3/uL (0.00-0.03); Imm Gran Pct Auto 0.3 % (0.0-0.4); Lymphocytes Absolute Auto 2.2 X10*3/uL (1.2-4.9); Lymphocytes Percent Auto 33.6 % (20-40); Mean Corpuscular HGB Conc 34.4 g/dl (31.0-35.0); Mean Corpuscular Hemoglobin 30.8 pg (27.0-33.0); Mean Corpuscular Volume 89.7 fL (80.0-98.0); Mean Platelet Volume 12.4 fL (9.4-12.3); Monocytes Absolute Auto 0.5 X10*3/uL (0.1-1.2); Monocytes Percent Auto 6.9 % (2-11); Neutrophils Absolute Auto 3.6 x10*3/uL (2.0-8.3); Neutrophils Percent Auto 55.2 % (45-73); Platelet Count 228 X10*3/uL (160-400); Red Blood Count 4.67 X10*6/uL (4.20-5.50); Red Cell Distribution Width 13.8 % (11.0-16.0); White Blood Count 6.5 X10*3/uL (4.8-10.8)
[2024-11-10 17:56] LABS: Anion Gap 10 (12-20); Blood Urea Nitrogen 11 mg/dL (9-16); Carbon Dioxide 28 mmol/L (22-29); Chloride 109 mmol/L (96-108); Estimated Glomerular Filt Rate > 60; Glucose Random 96 mg/dL (60-115); Iron 80 mcg/dL (30-160); Percent Iron Saturation 27 % (15-50); Potassium 3.5 mmol/L (3.3-5.1); Sodium 143 mmol/L (135-145); Total Iron Binding Capacity 300 mcg/dL (228-428); Unsaturated Iron Binding 220 ug/dL
[2024-11-10 18:05] LABS: TSH reflex Free T4 1.05 uIU/mL (0.32-4.0)
== END 2024-11-10 15:58 | disposition home or self-care (01) ==
LOC: HO.HHCL 15:57
PROVIDERS: PCP Nurse Practitioner Family; Visit Provider Nurse Practitioner Family
DX: I10 Essential (primary) hypertension (principal); L65.9 Nonscarring hair loss, unspecified
CPT/HCPCS: 36415; 80048; 83540; 84443; 85025